=== PATIENT | female | born 1945 | race Caucasian/White ===

== ENCOUNTER → 2016-05-24 | Outpatient (CLI) | payer OTHER ==
[~2016-05-24] MED LIST: ALBUAER2 INH; CLN150; PRLSR20 PO; SERT-234; SYN75
[2016-05-24 13:05] LABS: ALT/SGPT 24 U/L (12-78); BLOOD UREA NITROGEN 11 mg/dl (7-18); CARBON DIOXIDE 27 mmol/L (21-32); CHLORIDE 108 mmol/L (98-107); CHOLESTEROL 317 mg/dl (0-200); CREATININE 0.68 mg/dl (0.60-1.20); GLUCOSE 97 mg/dl (70-99); POTASSIUM 3.8 mmol/L (3.5-5.1); SODIUM 141 mmol/L (136-145)
[2016-05-24 13:13] LABS: ALB/GLOB RATIO 1.1 (0.9-2); ALKALINE PHOSPHATASE 91 U/L (45-117); AST/SGOT 20 U/L (15-37); CHOLESTEROL/HDL RATIO 5.5; HDL CHOLESTEROL 58 mg/dl; LDL CHOLESTEROL CALCULATED 219 mg/dl; TRIGLYCERIDES 199 mg/dl (0-150); VERY LOW DENSITY LIPOPROT CALC 40 mg/dl
[2016-05-24 13:26] LABS: ESTIMATED AVERAGE GLUCOSE 120 mg/dl; HA1C FLAG Normal (Normal)
== END | disposition home or self-care (01) ==
LOC: C.LABBFT 09:05
PROVIDERS: ATTEND Internal Medicine
DX: E78.00 Pure hypercholesterolemia, unspecified (principal); R73.01 Impaired fasting glucose

== ENCOUNTER → 2016-10-12 | Outpatient (CLI) | payer OTHER ==
[~2016-10-12] MED LIST changes: +OPTIRAY 320 IV PRN
--- NOTE | 2016-10-12 14:16 | DIAGNOSTIC IMAGING REPORT ---
CT OF THE ABDOMEN AND PELVIS WITH CONTRAST CLINICAL HISTORY: Abdominal pain and diarrhea. COMPARISON STUDY: CT of the abdomen and pelvis May 25, 2011 and renal ultrasound June 08, 2011. TECHNIQUE: Following IV administration of 92 mL of Optiray-320, axial images of the abdomen and pelvis were obtained from the lung bases to the proximal femurs. Images were reviewed in the axial, sagittal, and coronal planes. IV contrast was administered without complication. A dose lowering technique was utilized adhering to the principles of ALARA. Oral contrast was administered. CT DOSE: 625.84 mGycm FINDINGS: Lung bases are clear. The liver, spleen, left kidney, adrenal glands and pancreas are normal. Note is made of a 2.9 cm cyst arising from the lower pole of the right kidney. There is no biliary or pancreatic ductal dilatation. No peripancreatic or pericholecystic infiltration is present. There is no evidence for a bowel obstruction. There is no evidence for acute appendicitis. There is moderate wall thickening of the cecum and mild wall thickening of the ascending colon with small pericolonic lymph nodes. There may be mild wall thickening of the remainder of the colon as well. There is minimal pericolonic infiltration with no free air or abscess. The uterus is surgically absent. No suspicious skeletal lesions are present. IMPRESSION: 1. Moderate wall thickening of the cecum with mild wall thickening of the ascending colon. Minimal pericolonic infiltration. No free air or abscess. The findings suggest an infectious etiology. A follow-up colonoscopy if not recently performed is recommended once patient's symptoms resolve to exclude the less likely possibility of a neoplasm. 2. 2.9 cm right renal cyst. 3. Small hiatal hernia. Electronically signed by: Lamont Espinoza M.D. 10/12/2016 2:15 PM Dictated Date/Time: 10/12/2016 2:02 PM
== END | disposition home or self-care (01) ==
LOC: C.CTS 11:19
PROVIDERS: ATTEND Physician Assistant Medical
DX: R10.9 Unspecified abdominal pain (principal)

== ENCOUNTER → 2016-10-19 | Outpatient (CLI) | payer OTHER ==
[~2016-10-19] MED LIST changes: -OPTIRAY 320 IV PRN
[2016-10-19 17:23] LABS: BASO % 0.8 %; BASO ABS # 0.06 K/uL (0-0.2); COMPLETE YES; EOS % 1.8 %; IG% 0.9 %; LYMPH % 15.1 %; LYMPH ABS # 1.17 K/uL (1.2-3.4); MEAN CELL VOLUME 90.3 fL (80-100); MEAN CORPUSCULAR HEMOGLOBIN 30.5 pg (25-34); MEAN CORPUSCULAR HGB CONC 33.8 g/dl (32-36); MEAN PLATELET VOLUME 10.9 fL (7.4-10.4); MONO % 10.9 %; NEUT % 70.5 %; PLATELET COUNT 273 K/uL (130-400); RED BLOOD COUNT 4.43 M/uL (4.2-5.4); WHITE BLOOD COUNT 7.73 K/uL (4.8-10.8)
[2016-10-19 17:40] LABS: ALT/SGPT 38 U/L (12-78); AST/SGOT 32 U/L (15-37); BLOOD UREA NITROGEN 8 mg/dl (7-18); BUN/CREATININE RATIO 11.5 (10-20); CALCIUM 9.2 mg/dl (8.5-10.1); CARBON DIOXIDE 28 mmol/L (21-32); CHLORIDE 107 mmol/L (98-107); CREATININE 0.71 mg/dl (0.60-1.20); GLUCOSE 105 mg/dl (70-99); POTASSIUM 3.6 mmol/L (3.5-5.1); SODIUM 140 mmol/L (136-145)
[2016-10-19 17:42] LABS: ALKALINE PHOSPHATASE 74 U/L (45-117)
[2016-10-19 17:44] LABS: URINE APPEARANCE CLEAR (CLEAR); URINE BILIRUBIN NEG (NEG); URINE COLOR YELLOW; URINE NITRITE NEG (NEG); URINE PH 6.5 (4.5-7.5); URINE SPECIFIC GRAVITY 1.011 (1.000-1.030); UROBILINOGEN NEG (NEG)
[2016-10-19 17:54] LABS: MANUAL MICROSCOPIC REQUIRED? NO; REVIEW REQ? NO
== END | disposition home or self-care (01) ==
LOC: C.LABBFT 11:57
PROVIDERS: ATTEND Physician Assistant Medical
DX: R39.9 Unspecified symptoms and signs involving the genitourinary system (principal); R20.2 Paresthesia of skin

== ENCOUNTER → 2016-11-26 | Outpatient (CLI) | payer OTHER ==
[2016-11-26 12:51] LABS: ESTIMATED AVERAGE GLUCOSE 123 mg/dl; HA1C FLAG Normal (Normal)
[2016-11-26 13:24] LABS: ALT/SGPT 24 U/L (12-78); BLOOD UREA NITROGEN 14 mg/dl (7-18); BUN/CREATININE RATIO 20.9 (10-20); CALCIUM 9.2 mg/dl (8.5-10.1); CARBON DIOXIDE 26 mmol/L (21-32); CHLORIDE 107 mmol/L (98-107); CHOLESTEROL 332 mg/dl (0-200); CREATININE 0.67 mg/dl (0.60-1.20); GLUCOSE 98 mg/dl (70-99); SODIUM 139 mmol/L (136-145); TRIGLYCERIDES 302 mg/dl (0-150); VERY LOW DENSITY LIPOPROT CALC 60 mg/dl
[2016-11-26 13:35] LABS: ALKALINE PHOSPHATASE 84 U/L (45-117); AST/SGOT 20 U/L (15-37); CHOLESTEROL/HDL RATIO 6.5; HDL CHOLESTEROL 51 mg/dl; LDL CHOLESTEROL CALCULATED 221 mg/dl; THYROID STIMULATING HORMONE 0.535 uIu/ml (0.300-4.500)
== END | disposition home or self-care (01) ==
LOC: C.LABBFT 08:04
PROVIDERS: ATTEND Internal Medicine
DX: E03.9 Hypothyroidism, unspecified (principal); E78.00 Pure hypercholesterolemia, unspecified; R73.01 Impaired fasting glucose

== ENCOUNTER → 2017-05-28 | Outpatient (CLI) | payer OTHER ==
[2017-05-28 13:00] LABS: HEMOGLOBIN A1C 5.9 % (4.5-5.6)
== END | disposition home or self-care (01) ==
LOC: C.LABBFT 10:04
PROVIDERS: ATTEND Internal Medicine
DX: R73.01 Impaired fasting glucose (principal); E78.00 Pure hypercholesterolemia, unspecified

== ENCOUNTER → 2017-09-16 | Outpatient (CLI) | payer OTHER | END | disposition home or self-care (01) | LOC: C.PAPS 13:49 | PROVIDERS: ATTEND Obstetrics & Gynecology | DX: Z01.419 Encounter for gynecological examination (general) (routine) without abnormal findings (principal) ==

== ENCOUNTER → 2017-09-29 | Outpatient (CLI) | payer OTHER | END | disposition home or self-care (01) | LOC: C.LAB 10:58 | PROVIDERS: ATTEND Physician Assistant Medical | DX: N39.0 Urinary tract infection, site not specified (principal) ==

== ENCOUNTER 2020-08-10 09:38 | Observation (INO) ==
--- NOTE | 2020-08-04 14:46 | Anesthesiology Consultation ---
Date of Service August 04, 2020 Assessment & Plan (1) Encounter for pre-operative examination: COVID screening: Per assessment on 08/03: Travel screen negative. no known COVID- 19 positive contacts or current COVID-19 related symptoms. Wears mask when required. Patient vaccinated. Surgeon arranging preop COVID testing (scheduled 08/08; VANDA Black). Awaiting results. Chart Review Chart Review: Acceptable Risk for Surgery and Patient seen in Pre Admission Testing History Surgery Operation Date: 08/10/20 10:55 Proposed Procedures p L4-L5 Left Microdiscectomy - Tramaine Young MD Height/Weight Height: 5 ft 6.5 in Weight: 74.843 kg Allergies Allergy/AdvReac Type Severity Reaction Status Date / Time Penicillins Allergy Mild Skin Verified 08/04/20 14:55 redness ciprofloxacin AdvReac Mild N/V Verified 08/04/20 14:55 Tpbwuln-[id number]-Pxb Reductase AdvReac Mild Muscle Pain Verified 07/26/20 14:57 Inhibitor Sulfa (Sulfonamide AdvReac Mild N/V Verified 08/04/20 14:55 Antibiotics) Medications Home Medications Medication Instructions Recorded Confirmed Last Taken omeprazole 20 mg PO UD PRN 07/06/19 08/03/20 07/07/19 06:00 sertraline 150 mg PO QPM 07/06/19 08/03/20 12/06/19 08:00 levothyroxine 100 mcg tablet 100 mcg PO QAM #90 tab 04/29/20 08/03/20 Unknown lorazepam 0.5 mg tablet 0.5 mg PO Q12H PRN #60 tab 04/29/20 08/03/20 Unknown zolpidem 5 mg tablet 5 mg PO HS PRN #30 tab 04/29/20 08/03/20 Unknown acetaminophen [Tylenol Extra 500 - 1,000 mg PO Q6H PRN 08/03/20 08/03/20 Unknown Strength] oxycodone 5 mg PO TID PRN 08/03/20 08/03/20 Unknown Past Medical History Medical History Acid reflux Anxiety Chronic back pain Chronic obstructive pulmonary disease Colitis Non specific colitis on 06/18/19 CT scan- treated/symptoms resolved Degenerative disc disease Depression Hearing deficit Hypercholesteremia Hypothyroidism Spinal stenosis Past Family History Family History Son Allergies Asthma Brother Liver cancer Hearing loss Cardiac disorder Family history of diabetes mellitus multiple brothers Family hx of colon cancer Sister Hearing loss Cardiac disorder Family history of diabetes mellitus multiple sisters Family hx colonic polyps Family/Other Neoplasm of gastrointestinal tract Breast cancer Hypertension Other No family history of adverse response to anesthesia Past Surgical History Surgical History History of bilateral tubal ligation History of colonoscopy History of dilatation and curettage x2 History of left breast biopsy benign History of left cataract surgery History of lumbar discectomy History of right cataract surgery History of tooth extraction History of total hysterectomy with bilateral salpingo-oophorectomy (BSO) Nausea and vomiting after administration of anesthetic agent Single episode with back surgery () Social History Smoking Status: Never smoker Do You Dip or Chew Tobacco: No Hx Alcohol Use: No Hx Substance Use: No substance use type: does not use Lab Results Anesthesia Preop Results Results Anesthesia Widget: WBC 7.04 K/uL (4.8-10.8) 08/01/20 Hgb 13.2 g/dL (12.0-16.0) 08/01/20 Hct 39.7 % (37-47) 08/01/20 Plt 289 K/uL (130-400) 08/01/20 Na 139 mmol/L (136-145) 08/01/20 K 3.6 mmol/L (3.5-5.1) 08/01/20 Cl 107 mmol/L (98-107) 08/01/20 CO2 25 mmol/L (21-32) 08/01/20 BUN 13 mg/dl (7-18) 08/01/20 Creat 0.75 mg/dl (0.6-1.2) 08/01/20 Glucose Level 97 mg/dl (70-99) 08/01/20 Blood Type O Positive 08/01/20 Antibody Screen NEGATIVE 08/01/20 Testing Electrocardiogram Date: 08/01/20 Findings: + NSR @ (64) Chest X-Ray Date: 08/01/20 Findings: + NAD Pulmonary Function Test Date: 01/26/20 Proportional reduction in FEV1 and FVC with preserved ratio but normal lung volumes. Nonspecific pattern and clinical correlation recommended. Air flows did improve postbronchodilator and may be consistent with obstructive lung disease in the right clinical context. DLCO normal.
[~2020-08-10 09:38] MED LIST changes: -ALBUAER2 INH; -CLN150; +LACTATED RINGER'S 1,000 ML IV SCH; +LR 15ML/HR IV SCH; -PRLSR20 PO; -SERT-234; -SYN75; +ceFAZolin 2000MG 2,000 MG/15 ML SYR IV SCH
[2020-08-10] MEDS ORDERED: MIDAZOLAM HCL 1 MG/ML 2ML VIAL ONE (09:59)
[2020-08-10] MEDS ORDERED: LIDOCAINE 2% 2 ML VIAL/AMP(20MG/ML) INFIL ONE (09:59)
[2020-08-10] MEDS ORDERED: PROPOFOL IV EMULSION 10 MG/ML 20 ML VIAL IV ONE (09:59)
[2020-08-10] MEDS ORDERED: ROCURONIUM BROMIDE 10 MG/ML 5 ML VIAL IV ONE (09:59)
[2020-08-10] MEDS ORDERED: fentaNYL citrate 100 MCG/2 ML VIAL ONE (10:00)
--- NOTE | 2020-08-10 10:56 | History & Physical Bridge Note ---
Date of Service August 10, 2020 History & Physical Bridge Note I have examined the patient, reviewed the History & Physical and in the interval since the performance of the History & Physical I have noted the following changes of clinical significance: no changes noted New changes compared to last appointment: nil Musculoskeletal: 5/5 motor strength bilateral L2-S1 except left L4 4/5 (appears pain-inhibited, not noted in clinic), L5 4/5. Neurologic: Sensation 2/2 to light touch bilateral L2-S1 except left L5 1/2 Patient marked for surgery. All new questions about procedure answered. Informed consent confirmed
[2020-08-10] MEDS ORDERED: ONDANSETRON INJ 2 MG/ML 2 ML VIAL IV PRN ×2 (10:59→16:26)
[2020-08-10] MEDS ORDERED: ATROPINE SULFATE 0.1 MG/ML 10ML SYR IV PRN (10:59)
[2020-08-10] MEDS ORDERED: PROMETHAZINE HCL 6.25 MG in SODIUM CHLORIDE 0.9% 50 ML IV PRN (10:59)
[2020-08-10] MEDS ORDERED: GELATIN SPONGE SZ 100 ONE (11:09)
[2020-08-10] MEDS ORDERED: VANCOMYCIN HCL 1000MG/20ML VIAL ONE (11:09)
[2020-08-10] MEDS ORDERED: THROMBIN FOR SOLN 20000 UNIT KIT ONE (11:09)
[2020-08-10] MEDS ORDERED: DEXAMETHASONE SOD INJ 4 MG/ML VIAL ONE (11:46)
[2020-08-10] MEDS ORDERED: ONDANSETRON INJ 2 MG/ML 2 ML VIAL ONE (11:46)
[2020-08-10] MEDS ORDERED: NEOSTIGMINE METHYLSULFATE 1 MG/ML 10ML VIAL ONE (11:48)
[2020-08-10] MEDS ORDERED: GLYCOPYRROLATE 0.2 MG/ML VIAL ONE (11:48)
[2020-08-10] MEDS ORDERED: FLOSEAL HEMOSTATIC MATRIX 10ML TOP ONE (12:16)
[2020-08-10] MEDS ORDERED: HYDROmorphone INJ 0.5 MG/0.5 ML SYR IV PRN ×2 (13:17→16:26)
[2020-08-10] MEDS ORDERED: ACETAMINOPHEN 500 MG TAB PO ONE (13:17)
[2020-08-10] MEDS ORDERED: HYDROCODONE/ACETAMOPHEN 5/325MG TAB PO PRN (13:17)
[2020-08-10] MEDS ORDERED: ONDANSETRON 4 MG OD TAB PO ONE (13:17)
--- NOTE | 2020-08-10 13:17 | Post Operative Brief Note ---
PG Immediate Post Op with CF Date of Surgery August 10, 2020 Pre & Post Diagnosis Operation Date: 08/10/20 10:55 Pre-Op Diagnosis: Lumbar Disc Herniation left paracentral L4-L5, radiculopathy Post-Op Diagnosis: Lumbar Disc Herniation left paracentral L4-L5, radiculopathy I identified the patient and participated in the time-out.: Yes Procedure Actual Procedures L4-L5 Left Microdiscectomy Surgeon Tramaine Young MD E D Tech Carl Lugo PA-C Estimated Blood Loss 25 Findings Consistent with Post-Op Diagnosis
[2020-08-10] MEDS ORDERED: oxyCODONE/ACETAMINOPHEN 5mg/325mg TAB PO PRN (13:20)
[2020-08-10] MEDS ORDERED: ePHEDrine sulfate 50 MG/ML AMP ONE (13:25)
[2020-08-10] MEDS ORDERED: PHENYLEPHRINE 100MCG/ML 5ML SYR ONE (13:25)
--- NOTE | 2020-08-10 13:31 | Communication Note ---
Date of Service: August 10, 2020 Post-op routine neurological assessment completed Patient awake, alert No new neurological deficits noted Musculoskeletal: 5/5 motor strength bilateral L2-S1 except left L4 4/5, L5 4/5. Neurologic: Sensation 2/2 to light touch bilateral L2-S1 except left L5 1/2
[2020-08-10] MEDS: fentaNYL citrate 100 MCG/2 ML VIAL IV PRN ×4 (13:36→13:51)
[2020-08-10] MEDS ORDERED: HYDROmorphone INJ 2 MG/ML SYR/VIAL IV PRN ×2 (14:04→14:35)
[2020-08-10] MEDS ORDERED: HYDROmorphone INJ 1 MG/ML SYRINGE ONE ×2 (14:18→14:44)
[2020-08-10] MEDS ORDERED: HYDROmorphone INJ 0.5 MG/0.5 ML SYR IV STA (14:23)
--- NOTE | 2020-08-10 14:37 | Anesthesiology Progress Note ---
Date of Service August 10, 2020 Anesthesia Post Procedure Vital Signs Vital Signs: Temp Pulse Pulse Resp BP BP Pulse Ox 08/10/20 14:30 87 18 159/68 H 97 08/10/20 14:20 90 18 138/77 98 08/10/20 14:10 90 18 149/70 H 98 08/10/20 14:00 81 18 150/78 H 97 08/10/20 13:50 87 16 143/75 H 95 08/10/20 13:40 84 16 140/65 98 08/10/20 13:30 88 14 151/68 H 100 08/10/20 13:21 36.6 C 83 18 134/62 100 08/10/20 10:23 36.6 C 69 18 136/72 97 Pain Intensity Back: Pain Intensity: 10 Transfer of Care Handoff Completed per policy Notes Mental Status: alert / awake / arousable Patient Amnestic to Procedure: Yes Nausea / Vomiting: adequately controlled Pain: adequately controlled Airway Patency, RR, SpO2: stable & adequate BP & HR: stable & adequate Hydration State: stable & adequate Anesthetic Complications: no major complications apparent
--- NOTE | 2020-08-10 14:42 | XRay Report ---
XR lumbar spine 1V HISTORY: 75 years-old Female L4-L5 LEFT MICRODISCECTOMY COMPARISON: MRI lumbar spine 07/14/2020, lumbar spine radiographs 05/31/2020 TECHNIQUE: 3 views of the lumbar spine FINDINGS: Mild multilevel spondylitic spurring with associated facet arthrosis. A linear metallic density needl e shaped device overlies the spinous process at L4 on the first image. Subsequent images demonstrate retractors posterior to the L4-L5 level with radiopaque surgical sponges. No acute fracture or malali gnment. IMPRESSION: Intraoperative images as above. ACT 112: Negative or not required by law. The above report was generated using voice recognition software. It may contain grammatical, syntax o r spelling errors. Electronically signed by: Mathew Figueredo M.D. 08/10/2020 2:41 PM
[2020-08-10] MEDS ORDERED: GABAPENTIN 300 MG CAP PO ONE (15:34)
[2020-08-10] MEDS ORDERED: CYCLOBENZAPRINE HCL 10 MG TAB PO ONE (15:34)
[2020-08-10] MEDS ORDERED: oxyCODONE/ACETAMINOPHEN 10-325 TAB PO PRN (15:36)
[2020-08-10] MEDS ORDERED: GABAPENTIN 300 MG CAP ONE (15:44)
[2020-08-10] MEDS ORDERED: diphenhydrAMINE Capsule 25 MG CAP PO PRN ×2 (16:26→16:58)
[2020-08-10] MEDS ORDERED: ACETAMINOPHEN 500 MG TAB PO PRN (16:26)
[2020-08-10] MEDS ORDERED: ZOLPIDEM TARTRATE 5 MG TAB PO PRN (16:26)
[2020-08-10] MEDS ORDERED: LORazepam 0.5 MG TAB PO PRN (16:26)
[2020-08-10] MEDS ORDERED: ONDANSETRON 4 MG OD TAB PO PRN (16:26)
[2020-08-10] MEDS ORDERED: ALUMINUM/MAGNESIUM SUSP 30 ML UDC PO PRN (16:26)
[2020-08-10] MEDS ORDERED: DO NOT ADMINISTER PNEUMOCOCCAL VACCINE PRN (16:26)
[2020-08-10] MEDS ORDERED: hydrOXYzine HCl 25 MG TAB PO PRN (16:26)
[2020-08-10] MEDS ORDERED: NALOXONE HCL 0.4 MG/1 ML VIAL/CARP IV PRN (16:26)
[2020-08-10] MEDS ORDERED: MAGNESIUM HYDROXIDE SUSP 30 ML UDC PO PRN (16:26)
[2020-08-10] MEDS ORDERED: DO NOT ADMINISTER FLU VACCINE PRN (16:26)
[2020-08-10] MEDS ORDERED: FAMOTIDINE 20 MG TAB PO PRN (16:26)
[2020-08-10] MEDS ORDERED: LORazepam 0.5 MG/1 ML VIAL IV PRN (16:26)
[2020-08-10] MEDS ORDERED: PROMETHAZINE HCL 12.5 MG in SODIUM CHLORIDE 0.9% 50 ML IV PRN (16:26)
[2020-08-10] MEDS ORDERED: SOD PHOSPHATE/SOD BIPHOSPHATE ENEMA 132 ML BTL PR PRN (16:26)
[2020-08-10] MEDS ORDERED: ACETAMINOPHEN 1,000 MG/100 ML VIAL IV PRN (16:26)
[2020-08-10] MEDS ORDERED: PANTOprazole 40 MG TAB PO PRN (17:02)
[2020-08-10] MEDS: NITROFURANTOIN MONOHYDRATE 100 MG CAP PO SCH (20:36)
[2020-08-10] MEDS: SERTRALINE HCL 50 MG TABLET PO SCH (20:36)
[2020-08-10] MEDS: CYCLOBENZAPRINE HCL 10 MG TAB PO SCH (20:37)
[2020-08-10] MEDS: GABAPENTIN 300 MG CAP PO SCH (20:37)
[2020-08-10] MEDS: DOCUSATE SODIUM/SENNA 50/8.6MG TAB PO SCH (20:37)
[2020-08-10] MEDS: ceFAZolin 2000MG 2,000 MG/15 ML SYR IV SCH (20:38)
[2020-08-10] MEDS: oxyCODONE/ACETAMINOPHEN 10-325 TAB PO PRN (20:53)
[2020-08-11] MEDS: ceFAZolin 2000MG 2,000 MG/15 ML SYR IV SCH (03:34)
[2020-08-11] MEDS: CYCLOBENZAPRINE HCL 10 MG TAB PO SCH ×3 (05:42→20:04)
[2020-08-11] MEDS: POLYETHYLENE (MIRALAX) 17 GM PACK PO SCH ×4 (05:42→23:24)
[2020-08-11] MEDS: LEVOTHYROXINE SODIUM 100 MCG TABLET PO SCH (05:42)
--- NOTE | 2020-08-11 08:08 | Orthopedic Progress Note ---
Date of Service August 11, 2020 Assessment & Plan (1) Status post spinal surgery: PT and mobility today d/c once mobilizing well and pain well-controlled Admission and Anticipated Discharge Date Admission Date: August 10, 2020 Subjective admitted post-op due to pain not well-controlled pain better controlled now, localized to lower back with no radiation to legs no new numbness/weakness slow to mobilize PT pending Physical Exam Physical Exam: vitals: see vital signs section; on RA, oxygen overnight dressing: clean, dry intact drain: N/A vascular: no calf tenderness or swelling bilaterally. no signs of DVT Musculoskeletal: 5/5 motor strength bilateral L2-S1 except left L4 4/5, L5 4/5. Neurologic: Sensation 2/2 to light touch bilateral L2-S1 (resolved left L5 numbness as per patient). Results & Data ([facility]) Vital Signs (Past 12 Hours) Vital Signs Temp Pulse Resp BP Pulse Ox 08/11/20 07:47 100 08/11/20 04:14 36.7 C 66 16 121/62 98 08/10/20 23:22 36.4 C L 78 16 117/57 L 96 PG Care Time/CCT Total # of Minutes Spent Total Time Spent with Patient: Total time spent is greater than 50% in coordination of care (as documented) at patient's floor/unit and/or counseling patient: Coding Level of Care Code None Diagnoses Status post spinal surgery Z98.890
--- NOTE | 2020-08-11 08:34 | Anesthesiology Progress Note ---
Date of Service August 11, 2020 Anesthesia Post Procedure Vital Signs Vital Signs: Temp Pulse Pulse Resp BP BP Pulse Ox 08/11/20 08:13 36.6 C 76 16 129/69 95 08/11/20 07:47 100 08/11/20 04:14 36.7 C 66 16 121/62 98 08/10/20 23:22 36.4 C L 78 16 117/57 L 96 08/10/20 19:28 36.4 C L 83 18 123/65 94 08/10/20 18:25 36.4 C L 86 16 126/66 96 08/10/20 17:25 36.4 C L 94 H 16 139/70 94 08/10/20 16:55 36.5 C 99 H 16 131/66 93 08/10/20 15:50 37 C 99 H 15 146/66 H 94 08/10/20 15:20 36.8 C 102 H 16 172/70 H 95 08/10/20 15:10 36.5 C 80 14 158/74 H 94 08/10/20 15:00 77 14 152/72 H 94 08/10/20 14:50 86 20 153/69 H 98 08/10/20 14:40 90 18 165/72 H 97 08/10/20 14:30 87 18 159/68 H 97 08/10/20 14:20 90 18 138/77 98 08/10/20 14:10 90 18 149/70 H 98 08/10/20 14:00 81 18 150/78 H 97 08/10/20 13:50 87 16 143/75 H 95 08/10/20 13:40 84 16 140/65 98 08/10/20 13:30 88 14 151/68 H 100 08/10/20 13:21 36.6 C 83 18 134/62 100 08/10/20 10:23 36.6 C 69 18 136/72 97 Pain Intensity Back: Pain Intensity: 5 Notes Mental Status: alert / awake / arousable and participated in evaluation Patient Amnestic to Procedure: Yes Nausea / Vomiting: adequately controlled Pain: adequately controlled Airway Patency, RR, SpO2: stable & adequate BP & HR: stable & adequate Hydration State: stable & adequate Anesthetic Complications: no major complications apparent
[2020-08-11] MEDS: GABAPENTIN 300 MG CAP PO SCH ×2 (08:40→20:05)
[2020-08-11] MEDS: NITROFURANTOIN MONOHYDRATE 100 MG CAP PO SCH ×2 (08:40→20:04)
[2020-08-11] MEDS: oxyCODONE/ACETAMINOPHEN 10-325 TAB PO PRN (08:45)
[2020-08-11] MEDS: oxyCODONE/ACETAMINOPHEN 5mg/325mg TAB PO PRN (18:55)
[2020-08-11] MEDS: SERTRALINE HCL 50 MG TABLET PO SCH (20:05)
[2020-08-11] MEDS: DOCUSATE SODIUM/SENNA 50/8.6MG TAB PO SCH (20:05)
[2020-08-12] MEDS: CYCLOBENZAPRINE HCL 10 MG TAB PO SCH (06:05)
[2020-08-12] MEDS: LEVOTHYROXINE SODIUM 100 MCG TABLET PO SCH (06:05)
[2020-08-12] MEDS: POLYETHYLENE (MIRALAX) 17 GM PACK PO SCH ×2 (06:05→13:58)
--- NOTE | 2020-08-12 08:15 | Orthopedic Progress Note ---
Date of Service August 12, 2020 Assessment & Plan (1) Status post spinal surgery: d/c home once cleared by PT this AM Admission and Anticipated Discharge Date Admission Date: August 10, 2020 Subjective mobilizing well pain better controlled now, localized to lower back with no radiation to legs no new numbness/weakness on O2 overnight. cleared 2-step testing by RT this AM Physical Exam Physical Exam: vitals: see vital signs section; on RA with cleared 2 step tyra ting by RT this AM, oxygen overnight dressing: clean, dry intact drain: N/A vascular: no calf tenderness or swelling bilaterally. no signs of DVT Musculoskeletal: 5/5 motor strength bilateral L2-S1 except left L4 4/5, L5 4/5. Neurologic: Sensation 2/2 to light touch bilateral L2-S1 (resolved left L5 numbness as per patient). Results & Data ([facility]) Vital Signs (Past 12 Hours) Vital Signs Temp Pulse Pulse Pulse Pulse Pulse Resp 08/12/20 07:54 104 H 101 H 96 H 08/12/20 07:35 36.5 C 87 16 08/12/20 06:04 37.1 C 89 16 08/11/20 22:15 36.7 C 81 16 Resp Resp Resp BP Pulse Ox Pulse Ox Pulse Ox 08/12/20 07:54 23 20 16 90 94 08/12/20 07:35 144/67 H 94 08/12/20 06:04 139/63 93 08/11/20 22:15 109/48 L 94 Pulse Ox 08/12/20 07:54 94 08/12/20 07:35 08/12/20 06:04 08/11/20 22:15 PG Care Time/CCT Total # of Minutes Spent Total Time Spent with Patient: Total time spent is greater than 50% in coordination of care (as documented) at patient's floor/unit and/or counseling patient: Coding Level of Care Code None Diagnoses Status post spinal surgery Z98.890
--- NOTE | 2020-08-12 08:19 | Discharge Summary ---
Date of Service August 12, 2020 Principal Diagnosis lumbar radiculopathy Discharge Data Allergies Allergy/AdvReac Type Severity Reaction Status Date / Time Penicillins Allergy Mild Skin Verified 08/10/20 10:16 redness ciprofloxacin AdvReac Mild N/V Verified 08/10/20 10:16 Vzxysgu-Rdz-Dij Reductase AdvReac Mild Muscle Pain Verified 08/10/20 10:16 Inhibitor Sulfa (Sulfonamide AdvReac Mild N/V Verified 08/10/20 10:16 Antibiotics) Procedures Performed Operation Date: 08/10/20 10:55 Actual Procedures p L4-L5 Left Microdiscectomy(Left) - Tramaine Young MD Hospital Course (1) Status post spinal surgery: Patient underwent the above mentioned procedure. There were no complications noted intra-op. Post-operatively, patient was sent to recovery with plans for discharge home. Patient however had history of narcotic use with her pain not well-controlled post-op and as such, was admitted for pain management. Pain was well-controlled throughout stay. Patient was able to ambulate, void, and tolerate PO intake at time of discharge. Patient needed some oxygen supplementation during her hospital stay. She cleared a 2-step oxygen assessment by RT prior to discharge and was on room air. Verbal discharge and follow-up instructions were given. Total Time Total Time Spent Total Time Spent (In Minutes): 25 Discharge Plan Discharge Items Patient Disposition: Home - Self-Care Reason For Visit: Lumbar Disc Herniation Discharge Diagnosis: Lumbar Disc Herniation left paracentral L4-L5, radiculopathy Activity: Per Instructions section Non-emergency contact: Surgeon Call non-emergency contact if: you have any medication questions Follow-up/Referrals: Michael Cao III, MD [Primary Care Provider] - Tramaine Young MD [Physician] - Diet: Regular Addtl Attending Provider Instructions: Posterior Lumbar Decompression, Microlaminectomy or Microdiscectomy Recovery What to expect You've had surgery: the first step toward the goals of decreasing back and leg pain, improving the ability to stand and walk, and stopping symptoms of nerve compression from getting worse. Now it's time to focus on healing. By following these tips, you will set yourself up for a successful outcome after surgery. Top things to know 1. A moderate or increased amount of back pain is expected after surgery. This will get better over the next four to six weeks. 2. Leg pain usually gets better after surgery, but may not be completely gone. Numbness, tingling and weakness take longer to get better after surgery. This is normal. Pain and weakness Back pain and muscle spasms are normal after surgery. These should get better over the next few weeks. Numbness, tingling and weakness that you had before surgery may take time to improve. Taking care of your incision Your incision may bleed and your dressing may get saturated with blood. This is normal. Change your dressing as often as needed to keep the incision clean and dry. If your incision has no bleeding or drainage, you can take your dressing off one to two days after surgery, but always keep the incision area clean and dry. If you have skin glue or tape on your incision, try to leave it in place for the first two weeks. Showering You can take a shower three days after surgery, once the incision is closed and doesn't have drainage. Let gentle soap and water run over the incision. Do not scrub it. Pat dry with a clean towel. Avoid taking tub baths, swimming and going in hot tubs until the incision is completely healed (tour to six weeks). Taking medication You may take anti-inflammatory medications (NSAIDs) to help relieve pain. NSAIDs include ibuprofen, Advil, Aleve, naproxen, Naprosyn, Mobic, meloxicam, Celebrex and diclofenac. If you have kidney or heart disease, stomach ulcers or you take blood thinners, check with your primary care provider before taking NSAIDs. If you need refills on your prescriptions, you may contact our office at least two days before you are out of pills so we have sufficient time to process your request. Refill requests on Saturday afternoons and holidays likely will be addressed on the next business day. Start weaning yourself from pain medications as soon as you are able. Remember, pain is a natural part of the healing process. The goal is not lo eliminate all pain but to keep you comfortable as you heal. Pain medications should be used only for a short period of time. Before taking Tylenol (acetaminophen), be aware that your pain medication probably has acetaminophen in it. Taking additional Tylenol or acetaminophen can put you over the daily recommended 3,000 milligrams, which can harm your liver. If you are taking a muscle relaxant, one of the side effects is drowsiness. If you feel too drowsy to safely get up and move around, take the muscle relaxant less often. Be active, but no lifting We want you to be active as soon as you get home from the hospital. Get up and walk often. If you go up and downstairs, make sure you hold onto the railing and have someone with you. Avoid excessive bending and twisting, and do not lift anything over 10 pounds until your surgeon says it's OK. And no driving You cannot drive until you are no longer taking narcotic pain medications or muscle relaxants and you can move well enough to be safe behind the wheel. Most patients can begin driving after the 6 week postoperative appointment. Your surgeon will let you know when you can start driving. Eating Ice and Popsicles can help relieve a sore throat. Eat soft foods that are easy to swallow. Take small bites and chew your food well. You can begin eating other foods gradually as you start to feel better. Constipation and bloating Constipation is a common side effect of taking narcotic pain medication and a good reason to begin tapering yourself off of pain medication as soon as you can. Drink lots of fluid, be active, and eat foods high in fiber to help relieve constipation. If constipation is bothering you, a stool softener or laxative may help. Try one of the following, and always follow the instructions: Milk of Magnesia, MiraLAX, Dulcolax, suppository Fleet enema, magnesium citrate. Follow up with your primary care provider If you have any health concerns, see your primary care provider within one week after surgery, especially if you have any of the following: Heart disease or have had a stroke Lung disease Diabetes Are over age 65 Take a blood thinner Take more than 10 prescription medications When is it an emergency? If you have any of the following symptoms call 911 or go to an emergency room right away: Trouble breathing Chest pain Significant new weakness since your surgery If you have any other concern, call our office at [phone] before going to an emergency room. In most cases we can help you or get you an appointment quickly. Pending Studies at Discharge: No Stand-Alone Forms: [facility], [facility] Management Medications and DC Order Prescriptions: New oxycodone-acetaminophen [Percocet] 5-325 mg Tablet 1 - 2 tab PO Q4H PRN (Reason: pain) Qty: 30 RF: 0 oxycodone-acetaminophen [Percocet] 5-325 mg tablet 1 tab PO Q4H Qty: 20 RF: 0 Continued nitrofurantoin monohyd/m-cryst [Macrobid] 100 mg capsule 100 mg PO BID 7 Days Qty: 14 RF: 0 lorazepam 0.5 mg tablet 0.5 mg PO Q12H PRN (Reason: stressful event or symptoms) Qty: 60 RF: 0 sertraline [Zoloft] 100 mg tablet 150 mg PO QPM RF: 0 omeprazole 20 mg tablet,delayed release (DR/EC) 20 mg PO UD PRN (Reason: Acid Reflux) RF: 0 diphenhydramine HCl [Sleep Aid (diphenhydramine)] 25 mg Tablet 25 mg PO HS PRN (Reason: Sleep) RF: 0 levothyroxine [Synthroid] 100 mcg tablet 100 mcg PO QAM RF: 0 zolpidem [Ambien] 5 mg tablet 5 mg PO HS PRN (Reason: insomnia) RF: 0 Discontinued acetaminophen [Tylenol Extra Strength] 500 mg Capsule 500 - 1,000 mg PO Q6H PRN (Reason: Pain) RF: 0 oxycodone 5 mg Tablet 5 mg PO TID PRN (Reason: Pain) RF: 0 Discharge Orders: Discharge Order (Routine); Ordered 08/12/20 Ordered By: Tramaine Young Admission Data Admit Date/Time: 08/10/20 16:26 Attending Provider: Tramaine Young Admit Provider: Tramaine Young Primary Care Provider: Michael Cao III Other Providers: [facility],Home Healthcare Coding Level of Care Code D/C Day Management <30 mins Diagnoses Status post spinal surgery Z98.890 Time Spent (min) 25
[2020-08-12] MEDS: GABAPENTIN 300 MG CAP PO SCH (08:54)
[2020-08-12] MEDS: NITROFURANTOIN MONOHYDRATE 100 MG CAP PO SCH (08:54)
[2020-08-12] MEDS: oxyCODONE/ACETAMINOPHEN 5mg/325mg TAB PO PRN (08:54)
[2020-08-12] MEDS ORDERED: bisacodyL 10 MG SUPP PR PRN (15:43)
--- NOTE | 2020-08-14 18:21 | Operative Report ---
[facility] Post Operative Report Pre & Post Diagnosis Operation Date: 08/10/20 10:55 Pre-Op Diagnosis: L4-5 left paracentral broad-based disc herniation with left lateral recess stenosis, effacement of traversing nerve root, L5 radiculopathy Post-Op Diagnosis: L4-5 left paracentral broad-based disc herniation with left lateral recess stenosis, effacement of traversing nerve root, L5 radiculopathy I identified the patient and participated in the time-out.: Yes Procedure 1. Left L4 hemilaminotomy, partial medial facetectomy and left L4-5 microdiscectomy Surgeon Tramaine Young MD [employer] Carl Lugo PA-C Estimated Blood Loss 25 Findings Consistent with Post-Op Diagnosis Specimens none Description of Procedure Indications: Patient is a 75 year old lady who presented to my clinic on July 21, 2020 with a 5 month history of left leg L5 radiculopathy with functional limitations despite maximization of non-op management with the exception of an injection. Imaging was consistent with her presentation with a left L4-5 paracentral disc herniation with effacement of the traversing L5 nerve root. A discussion was had with the patient with regards to remaining options for her with plans to follow- up with her subsequent to a pain management visit previously arranged for her for consideration for injection. In follow-up appointment on July 26, patient expressed a decision not to proceed with injections with desire to address the issue surgically. Informed consent was obtained and patient was booked for above procedure. On day of surgery, patient was identified in pre-op holding area. History and Physical was updated, surgical site was marked, and consent was confirmed. Risks, benefits and alternatives were discussed again and I answered all their questions. Implants: none Drains: none Description of procedure: Patient was brought to the operating room and underwent general anesthesia. SCDs were applied to bilateral legs to reduce risk of DVT. Patient was place prone on a Owen frame. Face, eyes, bony prominences, and peripheral nerves were well protected. The lumbar spine was prepped with alcohol and Chloraprep and draped in standard sterile fashion. A time-out was performed and documented. This included confirmation of administration of prophylactic antibiotics. A spinal needle was inserted and a lateral xray taken to localize the incision. A midline incision was made. The incision was carried through the subcutaneous tissue with cautery. The fascia was incised and subperiosteal dissection carried over the surgical side's lamina. The Gretchen retractor was placed. A #4 Wise elevator was positioned under the lamina and a annabel was place on the exposed spinous process. Lateral localization xray was taken and once appropriate level was confirmed, the level was marked. A high speed karthik was used to make unilateral L4 hemilaminotomy up to the insertion of the ligamentum flavum on the affected side. An up-angled curette was used to free the ligamentum flavum from its cranial and caudal attachments and it was removed with Kerrison rongeurs. Partial medial facetectomy were performed using a karthik and Kerrison rongeurs. This enabled visualization of the traversing nerve root. The traversing nerve root was protected and gently retracted medially allowing visualization of the disc herniation. Direct pressure was noted on the traversing nerve root by the disc herniation. An annulotomy was made and the herniation was removed with a pituitary rongeur. A blunt nerve hook was used to palpate medially, superiorly and inferiorly to ensure there are no remaining protruding disc. At the conclusion of the discectomy, the traversing nerve root appeared to be fully decompressed. A ball-tipped probe was able to be freely passed into the foramen and through the lateral recess. The wound was then copiously irrigated. No spinal fluid leaks were identified. The wound was assessed for any sources of bleed and hemostasis was achieved prior to closure. To reduce risk of post-op infection, 1g of vancomycin powder was applied to the deep and superficial layers prior to closure. The wound was closed in layers with #1 Vicryl for fascia, 2-0 Vicryl sutures for subcutaneous superficial closure and 3-0 Stratafix suture for subcuticular superficial closure. Steri-strips and sterile dressings were applied. The patient was then flipped supine, awakened and taken to the recovery room in stable condition. There were no intra-operative complications noted. Sponge and needle counts were correct x2 at the conclusion of the case. I attest to the content of the Intraoperative Record and any orders documented therein. Any exceptions are noted below.
== END 2020-08-12 13:59 | disposition home health service (06) ==
LOC: 3E 09:38 → ASU 09:38

== ENCOUNTER 2022-04-29 11:28 | Inpatient (IN) ==
[2022-04-29] MEDS ORDERED: MoRPHine SULFATE 2 MG/ML CARP IV STA ×2 (11:48→15:21)
[2022-04-29] MEDS ORDERED: SODIUM CHLORIDE 0.9% 1000ML 500 ML IV ONE (11:48)
[2022-04-29] MEDS ORDERED: ONDANSETRON INJ 2 MG/ML 2 ML VIAL IV STA (11:48)
--- NOTE | 2022-04-29 11:57 | Emergency Department Note ---
ED Provider Note History of Present Illness Chief Complaint: Diarrhea Stated Complaint: DIARRHEA, ABDOMINAL PAIN Time Seen by Provider: 04/29/22 11:35 pleasant 77-year-old female who presents to the emergency department with her cpvysawz-ic-irn for evaluation of lower abdominal pain, nausea, diarrhea and weakness. The patient reports that she awoke around 5 AM this morning with bloody diarrhea, and significant left lower quadrant abdominal cramping. The pain does not radiate into the back, upper abdomen or chest. Is that she has had weakness since having a COVID-19 infection back in March. The patient does report a prior history of problems with her gut. the patient reports that she did have a colonoscopy a few years ago with Dr. Paz. She denies eating any unusual foods. She denies any known sick contacts. The patient currently rates her discomfort an 8 out of 10. Home Medications Medication Instructions Recorded Confirmed Type diphenhydramine HCl 25 mg tablet 25 mg PO HS PRN Sleep 08/10/20 04/29/22 History (Sleep Aid (diphenhydramine)) omeprazole 20 mg tablet,delayed 20 mg PO UD PRN Acid Reflux #30 11/03/20 04/29/22 Rx release tabs zolpidem 5 mg tablet (Ambien) 5 mg PO HS PRN insomnia #30 tabs 05/19/21 04/29/22 Rx levothyroxine 100 mcg tablet 100 mcg PO QAM #90 tabs 08/09/21 04/29/22 Rx (Synthroid) acetaminophen 500 mg tablet 500 mg PO Q6H PRN Pain 09/21/21 04/29/22 History (Tylenol Extra Strength) bismuth subsalicylate 262 mg/15 mL 0 mg PO QID PRN gi-upset 09/21/21 04/29/22 History oral suspension (Pepto-Bismol) triamcinolone acetonide 0.1 % 1 applic topical BID PRN flare ups 09/21/21 04/29/22 History topical cream clotrimazole 10 mg taye 10 mg mucous membrane 5XD 7 days 09/25/21 04/29/22 Rx #35 tabs sertraline 100 mg tablet (Zoloft) 150 mg PO DAILY #135 tabs 10/10/21 04/29/22 Rx lorazepam 0.5 mg tablet 0.5 mg PO Q12H PRN stressful event 04/17/22 04/29/22 Rx or symptoms #60 tabs cholecalciferol (vitamin D3) 10 0 mcg PO DAILY 04/29/22 04/29/22 History mcg (400 unit) capsule (Vitamin D3) multivitamin 1 tab PO DAILY 04/29/22 04/29/22 History Allergies Allergy/AdvReac Type Severity Reaction Status Date / Time Penicillins Allergy Mild Skin Verified 04/29/22 13:03 redness ciprofloxacin AdvReac Mild N/V Verified 04/29/22 13:03 Qzdarrc-[id number]-KeX Reductase AdvReac Mild Muscle Pain Verified 04/29/22 13:03 Inhibitor [Irkreeu-Ryb-Xdu Reductase Inhibitor] Sulfa (Sulfonamide AdvReac Mild N/V Verified 04/29/22 13:03 Antibiotics) clonazepam AdvReac Verified 04/29/22 13:03 Past Med/Surg History Medical History (Updated 04/29/22 @ 17:21 by Rod Coburn) Acid reflux Anxiety Chronic back pain Chronic obstructive pulmonary disease Colitis Non specific colitis on 06/18/19 CT scan- treated/symptoms resolved Degenerative disc disease Depression Hearing deficit Hypercholesteremia Hypothyroidism Spinal stenosis Surgical History History of back surgery 08/10/20 History of bilateral tubal ligation History of colonoscopy History of dilatation and curettage x2 History of left breast biopsy benign History of left cataract surgery History of lumbar discectomy History of right cataract surgery History of tooth extraction History of total hysterectomy with bilateral salpingo-oophorectomy (BSO) Nausea and vomiting after administration of anesthetic agent Single episode with back surgery () Family History Son Allergies Asthma Brother Liver cancer Hearing loss Cardiac disorder Family history of diabetes mellitus multiple brothers Family hx of colon cancer Sister Hearing loss Cardiac disorder Family history of diabetes mellitus multiple sisters Family hx colonic polyps Family/Other Neoplasm of gastrointestinal tract Breast cancer Hypertension Other No family history of adverse response to anesthesia Social History Smoking Status: Never smoker Second Hand Exposure: No; Hx Alcohol Use: No Hx Substance Use: No Preferred Language: Chinese Communication Ability: Effective Visual Impairment: No Limitations Hearing Ability: Hard of Hearing 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: No Beliefs That Will Affect Care: None marital status: Current Living Situation: Spouse current occupational status: retired current occupation: used to work in retail Feels Safe at Home: Yes Childhood Exposure to Second-Hand Smoke: Yes Dental Care, Regularly: Yes Physical Activity Frequency: Does not Exercise Seatbelt Use: always Sunscreen Use: No Assistive Devices: Walker Physical Exam Vital Signs Vital Signs - 24 hr 04/29/22 11:29 04/29/22 12:11 Temperature 36.6 C Temperature Source Temporal Artery Scan Pulse Rate 83 Pulse Rate [Left Finger] 64 Respiratory Rate 16 Blood Pressure 161/78 H Blood Pressure [Left Arm] 147/70 H Blood Pressure Mean 105 Blood Pressure Mean [Left Arm] 95 Pulse Oximetry 98 99 Sepsis Recent Fever Within 48 Hours No Sepsis New/Unexplained Change in Mental Status N/A Sepsis Action Taken by Nursing No Action Required CONSTITUTIONAL: Healthy and well nourished. Patient appears in mild to moderate discomfort. HEENT: No scleral icterus or conjunctival injection/pallor. Mucous membranes are dry. RESPIRATORY: Clear to auscultation bilaterally with no wheezing, crackles, rhonchi or stridor. CARDIOVASCULAR: Regular rate and rhythm with no murmurs, rubs or gallops. GASTROINTESTINAL: Bowel sounds present in all quadrants. Patient has notable lower and left lower quadrant abdominal tenderness to palpation without rigidity, guarding or rebound. Negative McBurney's point tenderness. Negative CVA tenderness. MUSCULOSKELETAL: Full range of motion of all joints without discomfort. INTEGUMENTARY: No rash or other significant dermatologic conditions noted. HEMATOLOGIC: No ecchymosis or petechiae. PSYCHIATRIC: Positive affect. NEUROLOGIC: No focal neurologic deficits noted. Course Course Patient history and physical exam were performed. Nurses notes were reviewed. Vital signs were reviewed, showing an elevated blood pressure. The patient is not febrile or tachycardic. IV access was established, and labs were drawn. The patient was hydrated with a normal saline 500 cc bolus, and administered IV morphine and Zofran for pain and nausea. Review of labsShows a white count of 19.38 with a left shift and no bandemia. CMP shows an elevated glucose, otherwise no other acute abnormalities. TSH was also normal. Prior to CT imaging, I did reassess the patient, who reported a decrease of her pain to a 4 out of 10, and denied any nausea. CT with IV contrast of the abdomen and pelvis shows evidence for the colitis of the left colon, without evidence for diverticulitis. Radiologist also makes mention of nonocclusive thrombus within the right and left intrahepatic portal veins, as well as a thrombus within the inferior mesenteric vein. It is noted that the patient did have a CT with IV contrast of the abdomen and pelvis back in September of last year that did not show these findings. Findings were discussed with Dr. Stuart, ED attending physician, who recommended hospitalist consultation, possible heparin administration. I did go back and discuss findings with the patient. The patient had just come out of the bathroom, And has not been able to provide a stool sample. She did notice some bright red blood on her toilet paper. Laboratory and CT findings were discussed with the patient and family. I then discussed the case further with Dr. Aguilar, [facility] hospitalist, who requested that I also discussed the case further with general surgery on-call. He also asked that I perform an ECG to rule out A-fib, and pending general surgery conversation, they would start heparin orders. An ECG was performed, showing a normal sinus rhythm. The case was then further discussed with Dr. Spivey, general surgeon on-call, who indicated that this is a nonsurgical management at this point, and was okay with starting heparin. He will evaluate the patient. This information was relayed back to Dr. Aguilar. Please see hospitalist and surgical dictations for further treatment and final disposition. Administered Medications Cefepime HCl 2,000 mg/ Syringe 20 mls @ 5 mls/min IV Q8H [facility]; Protocol Stop: 05/09/22 16:59 Last Admin: 04/29/22 17:37 Dose: 5 mls/min Documented By: EDIN Metronidazole (Flagyl) 500 mg in 100 mls @ 100 mls/hr IV Q8H JASMIN Stop: 05/09/22 16:59 Last Infusion: 04/29/22 19:00 Dose: 0 mls/hr Documented By: Admin: 04/29/22 17:53 Dose: 100 mls/hr Documented By: EDIN Heparin Sodium/Dextrose (Heparin Sodium/Dextrose) 25,000 units in 500 mls @ 24 mls/hr IV .[id number] [facility]; Protocol Stop: 05/29/22 16:59 Last Admin: 04/29/22 17:35 Dose: 1,200 units/hr, 24 mls/hr Documented By: EDIN Co-signed By: NH Discontinued Medications Sodium Chloride (Nss 1000ml) 500 mls @ 999 mls/hr IV .Q31M ONE Stop: 04/29/22 12:18 Last Admin: 04/29/22 12:16 Dose: 999 mls/hr Documented By: CELIA Lactated Ringer's (Lr) 1,000 mls @ 999 mls/hr IV .Q1H1M ONE Stop: 04/29/22 17:42 Last Infusion: 04/29/22 19:01 Dose: 0 mls/hr Documented By: Admin: 04/29/22 17:37 Dose: 999 mls/hr Documented By: EDIN Ioversol (Optiray 350 100ml) 85 ml IV ONCE ONE Stop: 04/29/22 13:57 Last Admin: 04/29/22 13:56 Dose: 85 ml Documented By: DENISE Morphine Sulfate (Morphine Sulfate 2 Mg/Ml Carp) 2 mg IV NOW STA Stop: 04/29/22 11:49 Last Admin: 04/29/22 12:15 Dose: 2 mg Documented By: CELIA Morphine Sulfate (Morphine Sulfate 2 Mg/Ml Carp) 2 mg IV NOW STA Stop: 04/29/22 15:22 Last Admin: 04/29/22 15:27 Dose: 2 mg Documented By: EDIN Ondansetron HCl (Ondansetron Inj 2 Mg/Ml 2 Ml Vial) 4 mg IV NOW STA Stop: 04/29/22 11:49 Last Admin: 04/29/22 12:15 Dose: 4 mg Documented By: CELIA Medical Decision Making Medical Records Attestation: I reviewed the patient's medical records. Home Medications was personally reviewed by me Laboratory Data Attestation: I reviewed the patient's lab results. 04/29/22 12:06 04/29/22 12:06 Lab Results 04/29/22 04/29/22 04/29/22 Range/Units 12:06 12:06 12:06 WBC 19.38 H (4.8-10.8) K/ul RBC 4.50 (4.20-5.40) M/uL Hgb 14.0 (12.0-16.0) g/dl Hct 40.5 (37.0-47.0) % MCV 90.0 (80.0-100.0) fL MCH 31.1 (25.0-34.0) pg MCHC 34.6 (32.0-36.0) g/dL RDW Std Deviation 40.8 (36.4-46.3) fL RDW Coeff of Angela 12.4 (11.5-14.5) % Plt Count 221 (130-400) K/uL MPV 10.4 (9.4-12.4) fL Immature Gran % (Auto) 0.6 % Neut % (Auto) 89.1 % Lymph % (Auto) 4.3 % Craven % (Auto) 5.7 % Eos % (Auto) 0.0 % Baso % (Auto) 0.3 % Neut # (Auto) 17.26 H (1.40-6.50) K/uL Lymph # (Auto) 0.84 L (1.2-3.4) K/uL Craven # (Auto) 1.11 H (0.11-0.59) K/uL Eos # (Auto) 0.00 (0-0.50) K/uL Baso # (Auto) 0.05 (0-0.2) K/uL Immature Gran # (Auto) 0.12 (0.01-0.20) K/uL PT (9.0-12.0) Seconds INR (0.9-1.1) APTT (21.0-31.0) Seconds PTT Ratio Sodium 138 (136-145) mmol/L Potassium 3.6 (3.5-5.1) mmol/L Chloride 103 (98-107) mmol/L Carbon Dioxide 26 (21-32) mmol/L Anion Gap 9 (3-11) BUN 15 (6-23) mg/dl Creatinine 0.74 (0.6-1.2) mg/dl Est Cr Clr Drug Dosing 68.3 ml/min Est GFR ( Amer) 91.9 ml/min Est GFR (Non-Af Amer) 79.3 ml/min BUN/Creatinine Ratio 20.3 H (10-20) Glucose 121 H (70-99(Fasting)) mg/dl Lactate (0.4-2.0) mmol/L Calcium 9.8 (8.5-10.1) mg/dl Total Bilirubin 0.5 (0.2-1.0) mg/dl AST 22 (13-39) U/L ALT 17 (7-52) U/L Alkaline Phosphatase 78 (34-104) U/L Total Protein 7.8 (6.0-8.3) gm/dl Albumin 4.6 (3.4-5.0) gm/dl Globulin 3.2 (2.5-4.0) gm/dl Albumin/Globulin Ratio 1.4 (0.9-2) Lipase 29 (11-82) U/L TSH 1.885 (0.300-4.500) uIu/ml Urine Color Urine Appearance (Clear) Urine pH (4.5-7.5) Ur Specific [place] (1.000-1.030) Urine Protein (Negative) Urine Glucose (UA) (Negative) Urine Ketones (Negative) Urine Blood (Negative) Urine Nitrite (Negative) Urine Bilirubin (Negative) Urine Urobilinogen (Negative) Ur Leukocyte Esterase (Negative) Urine WBC (Auto) (0-5) /hpf Urine RBC (Auto) (0-4) /hpf U Hyaline Cast (Auto) (0-5) /lpf U Epithel Cells (Auto) (0-5) /lpf Urine Bacteria (Auto) (Negative) SARS-CoV-2, RNA, NAAT (NEGATIVE) 04/29/22 04/29/22 04/29/22 Range/Units 12:06 12:06 15:22 WBC (4.8-10.8) K/ul RBC (4.20-5.40) M/uL Hgb (12.0-16.0) g/dl Hct (37.0-47.0) % MCV (80.0-100.0) fL MCH (25.0-34.0) pg MCHC (32.0-36.0) g/dL RDW Std Deviation (36.4-46.3) fL RDW Coeff of Angela (11.5-14.5) % Plt Count (130-400) K/uL MPV (9.4-12.4) fL Immature Gran % (Auto) % Neut % (Auto) % Lymph % (Auto) % Craven % (Auto) % Eos % (Auto) % Baso % (Auto) % Neut # (Auto) (1.40-6.50) K/uL Lymph # (Auto) (1.2-3.4) K/uL Craven # (Auto) (0.11-0.59) K/uL Eos # (Auto) (0-0.50) K/uL Baso # (Auto) (0-0.2) K/uL Immature Gran # (Auto) (0.01-0.20) K/uL PT 10.7 (9.0-12.0) Seconds INR 1.0 (0.9-1.1) APTT 24.6 (21.0-31.0) Seconds PTT Ratio 0.9 Sodium (136-145) mmol/L Potassium (3.5-5.1) mmol/L Chloride (98-107) mmol/L Carbon Dioxide (21-32) mmol/L Anion Gap (3-11) BUN (6-23) mg/dl Creatinine (0.6-1.2) mg/dl Est Cr Clr Drug Dosing ml/min Est GFR ( Amer) ml/min Est GFR (Non-Af Amer) ml/min BUN/Creatinine Ratio (10-20) Glucose (70-99(Fasting)) mg/dl Lactate 1.1 (0.4-2.0) mmol/L Calcium (8.5-10.1) mg/dl Total Bilirubin (0.2-1.0) mg/dl AST (13-39) U/L ALT (7-52) U/L Alkaline Phosphatase (34-104) U/L Total Protein (6.0-8.3) gm/dl Albumin (3.4-5.0) gm/dl Globulin (2.5-4.0) gm/dl Albumin/Globulin Ratio (0.9-2) Lipase (11-82) U/L TSH (0.300-4.500) uIu/ml Urine Color Yellow Urine Appearance Clear (Clear) Urine pH 7.5 (4.5-7.5) Ur Specific [place] 1.012 (1.000-1.030) Urine Protein Negative (Negative) Urine Glucose (UA) Negative (Negative) Urine Ketones Negative (Negative) Urine Blood Negative (Negative) Urine Nitrite Negative (Negative) Urine Bilirubin Negative (Negative) Urine Urobilinogen Negative (Negative) Ur Leukocyte Esterase Trace H (Negative) Urine WBC (Auto) 1-5 (0-5) /hpf Urine RBC (Auto) 0-4 (0-4) /hpf U Hyaline Cast (Auto) 0 (0-5) /lpf U Epithel Cells (Auto) 10-20 H (0-5) /lpf Urine Bacteria (Auto) Negative (Negative) SARS-CoV-2, RNA, NAAT (NEGATIVE) 04/29/22 Range/Units 18:25 WBC (4.8-10.8) K/ul RBC (4.20-5.40) M/uL Hgb (12.0-16.0) g/dl Hct (37.0-47.0) % MCV (80.0-100.0) fL MCH (25.0-34.0) pg MCHC (32.0-36.0) g/dL RDW Std Deviation (36.4-46.3) fL RDW Coeff of Angela (11.5-14.5) % Plt Count (130-400) K/uL MPV (9.4-12.4) fL Immature Gran % (Auto) % Neut % (Auto) % Lymph % (Auto) % Craven % (Auto) % Eos % (Auto) % Baso % (Auto) % Neut # (Auto) (1.40-6.50) K/uL Lymph # (Auto) (1.2-3.4) K/uL Craven # (Auto) (0.11-0.59) K/uL Eos # (Auto) (0-0.50) K/uL Baso # (Auto) (0-0.2) K/uL Immature Gran # (Auto) (0.01-0.20) K/uL PT (9.0-12.0) Seconds INR (0.9-1.1) APTT (21.0-31.0) Seconds PTT Ratio Sodium (136-145) mmol/L Potassium (3.5-5.1) mmol/L Chloride (98-107) mmol/L Carbon Dioxide (21-32) mmol/L Anion Gap (3-11) BUN (6-23) mg/dl Creatinine (0.6-1.2) mg/dl Est Cr Clr Drug Dosing ml/min Est GFR ( Amer) ml/min Est GFR (Non-Af Amer) ml/min BUN/Creatinine Ratio (10-20) Glucose (70-99(Fasting)) mg/dl Lactate (0.4-2.0) mmol/L Calcium (8.5-10.1) mg/dl Total Bilirubin (0.2-1.0) mg/dl AST (13-39) U/L ALT (7-52) U/L Alkaline Phosphatase (34-104) U/L Total Protein (6.0-8.3) gm/dl Albumin (3.4-5.0) gm/dl Globulin (2.5-4.0) gm/dl Albumin/Globulin Ratio (0.9-2) Lipase (11-82) U/L TSH (0.300-4.500) uIu/ml Urine Color Urine Appearance (Clear) Urine pH (4.5-7.5) Ur Specific [place] (1.000-1.030) Urine Protein (Negative) Urine Glucose (UA) (Negative) Urine Ketones (Negative) Urine Blood (Negative) Urine Nitrite (Negative) Urine Bilirubin (Negative) Urine Urobilinogen (Negative) Ur Leukocyte Esterase (Negative) Urine WBC (Auto) (0-5) /hpf Urine RBC (Auto) (0-4) /hpf U Hyaline Cast (Auto) (0-5) /lpf U Epithel Cells (Auto) (0-5) /lpf Urine Bacteria (Auto) (Negative) SARS-CoV-2, RNA, NAAT NEGATIVE (NEGATIVE) Imaging Data Attestation: I personally reviewed and interpreted this imaging study as follows: My Impression: My interpretation of a CT with IV contrast of the abdomen and pelvis surgery generalized left colitis without evidence for diverticulitis, abdominal free air or. Radiologist does also make mention of nonocclusive right and left intrahepatic portal vein thrombi, as well as a mesenteric venous thrombus. Radiologist report was also reviewed with concurrence, and is summarized below. Radiologist's Impression: Abdomen/Pelvis CT 04/29/22 11:48 CT SCAN OF THE ABDOMEN AND PELVIS WITH IV CONTRAST CLINICAL HISTORY: Generalized abdominal pain. Hematochezia. COMPARISON STUDY: Abdominal CT dated 09/21/2021. TECHNIQUE: Following the IV administration of 85 cc of Optiray 350, CT scan of the abdomen and pelvis is performed from the lung bases to the proximal femora. Images are reviewed in the axial, sagittal, and coronal planes. IV contrast was administered without complication. A dose lowering technique was utilized adhering to the principles of ALARA. CT DOSE: 374.77 mGy.cm FINDINGS: Lung bases: The heart is normal in size and without pericardial effusion. The lung bases are clear. There is a [id number] hiatal hernia. Liver: The contrast-enhanced liver is normal in size, contour, and attenuation. There is no intrahepatic biliary ductal dilatation. There is nonocclusive thrombus within the intrahepatic right and left lobe portal veins. This is best seen on axial images #93 and #94. The main portal vein is patent. There is thrombus within the inferior mesenteric vein seen on image #141. Hepatic veins are clear. Gallbladder: Unremarkable. Spleen: Normal in size and attenuation. Pancreas: Unremarkable. Adrenal glands: Unremarkable. Kidneys: The contrast enhanced kidneys are normal in size and without hydron ephrosis. The kidneys enhance symmetrically. A 3.5 cm cyst is seen in the right lower pole. Abdominal vasculature: The abdominal aorta is normal in course and caliber noting mild atherosclerotic calcification. Bowel: There is mild colonic diverticulosis without CT evidence of acute diverticulitis. There is a long segment of thick-walled and edematous colon. This extends from the distal transverse colon to the sigmoid with surrounding inflammation, and this is consistent with a nonspecific colitis. No bowel obstruction is seen. The appendix is well-visualized and normal. Peritoneum: There is no intraperitoneal free air or abdominal ascites. There is a small fat-containing umbilical hernia. Lymphadenopathy: None. Pelvic viscera: The bladder is decompressed and not well assessed. The uterus is surgically absent. No adnexal lesion is seen. Skeletal structures: The skeletal structures are osteopenic. No lytic or blastic lesions are seen. IMPRESSION: 1. There is nonocclusive thrombus within the right and left intrahepatic portal veins. There is also thrombus within the inferior mesenteric vein. 2. There is a nonspecific colitis of the left colon. Although this could be on an infectious or inflammatory basis, this could also be related to venous ischemia given the findings of mesenteric venous thrombus. Clinical correlation will be required. 3. Colonic diverticulosis without CT evidence of acute diverticulitis. 4. Additional findings as above. ACT 112: Negative or not required by law. Electronically signed by: Solitario Marrero M.D. 04/29/2022 2:24 PM ECG Data Attestation: I personally reviewed and interpreted this ECG as follows: Indication: + other ( abdominal venous thrombosis) Rate (beats per minute): 81 Rhythm: + normal sinus ECG Intervals/blocks: + Normal QRS, + Normal QT and + Normal MD ECG [place]: + Normal ECG ST segments: + Normal ST segments Comparison ECG Date: from ( 04/29/2022) Change: no significant change MDM Narrative See ED course for further details of today's visit. The patient presents with complaint of lower and left lower quadrant abdominal pain, nausea, vomiting and bloody diarrhea. CT imaging today Shows a left-sided colitis, and with presenting symptoms, I highly suspect a viral gastroenteritis. Unfortunately, CT imaging also shows an inferior mesenteric venous thrombus, as well as additional nonocclusive thrombi within the right and left intrahepatic portal veins. This certainly warrants evaluation for possible ischemic colitis. Patient does have a notable leukocytosis. Her lactate is normal. Additional blood cultures were ordered. General surgery consultation does not feel that surgical intervention is warranted, and has agreed with administration of heparin at this time. General surgery will also follow-up with the patient. Review of labs are not suggestive of pancreatitis, cholecystitis or hepatitis. Urinalysis is not suggestive of infection. ECG does not show evidence for atrial fibrillation. Impression Inferior mesenteric vein thrombosis, Colitis, Bloody diarrhea, Nausea and vomiting Discharge Plan Visit Data Chief Complaint: Diarrhea Stated Complaint: DIARRHEA, ABDOMINAL PAIN ED Provider: Romain Stuart ED Midlevel Provider: Rod Coburn Discharge Problem: Inferior mesenteric vein thrombosis, Colitis, Bloody diarrhea, Nausea and vomiting Forms Stand Alone Forms: My [facility] Xtium Prescriptions Prescriptions: No Action sertraline [Zoloft] 100 mg tablet 150 mg PO DAILY Qty: 135 3RF lorazepam 0.5 mg tablet 0.5 mg PO Q12H PRN (Reason: stressful event or symptoms) Qty: 60 0RF omeprazole 20 mg tablet,delayed release (DR/EC) 20 mg PO UD PRN (Reason: Acid Reflux) Qty: 30 6RF zolpidem [Ambien] 5 mg tablet 5 mg PO HS PRN (Reason: insomnia) Qty: 30 0RF levothyroxine [Synthroid] 100 mcg tablet 100 mcg PO QAM Qty: 90 3RF clotrimazole 10 mg taye 10 mg mucous membrane 5XD 7 Days Qty: 35 0RF triamcinolone acetonide 0.1 % cream 1 applic topical BID PRN (Reason: flare ups) diphenhydramine HCl [Sleep Aid (diphenhydramine)] 25 mg Tablet 25 mg PO HS PRN (Reason: Sleep) acetaminophen [Tylenol Extra Strength] 500 mg Tablet 500 mg PO Q6H PRN (Reason: Pain) bismuth subsalicylate [Pepto-Bismol] 262 mg/15 mL Suspension 0 mg PO QID PRN (Reason: gi-upset) multivitamin Tablet 1 tab PO DAILY cholecalciferol (vitamin D3) [Vitamin D3] 10 mcg (400 unit) Capsule 0 mcg PO DAILY Referrals Referrals: Dyllan Parker CRNP [Nurse Practitioner] - Nausea and vomiting Qualifiers: Vomiting type: unspecified Qualified Code(s): R11.2 - Nausea with vomiting, unspecified
[2022-04-29 12:28] LABS: Basophils # (auto) 0.05 K/uL (0-0.2); Basophils % (auto) 0.3 %; Hematocrit (blood only) 40.5 % (37.0-47.0); Immature Granulocytes # (auto) 0.12 K/uL (0.01-0.20); Immature Granulocytes % (auto) 0.6 %; Lymphocytes # (auto) 0.84 K/uL (1.2-3.4); Lymphocytes % (auto) 4.3 %; Mean Corpuscular Hemoglobin 31.1 pg (25.0-34.0); Mean Corpuscular Hgb Conc 34.6 g/dL (32.0-36.0); Mean Platelet Volume 10.4 fL (9.4-12.4); Monocytes # (auto) 1.11 K/uL (0.11-0.59); Monocytes % (auto) 5.7 %; Neutrophils # (auto) 17.26 K/uL (1.40-6.50); Neutrophils % (auto) 89.1 %; Platelet Count 221 K/uL (130-400); RDW Coefficient of Variation 12.4 % (11.5-14.5); RDW Standard Deviation 40.8 fL (36.4-46.3); White Blood Count 19.38 K/ul (4.8-10.8)
[2022-04-29 13:03] LABS: Albumin Globulin Ratio 1.4 (0.9-2); Albumin Level 4.6 gm/dl (3.4-5.0); BUN Creatinine Ratio 20.3 (10-20); Bilirubin,Total 0.5 mg/dl (0.2-1.0); Calcium 9.8 mg/dl (8.5-10.1); Creatinine Clr Calc Pharmacy 68.3 ml/min; Est GFR (African American) 91.9 ml/min; Est GFR (Non-African American) 79.3 ml/min; Globulin 3.2 gm/dl (2.5-4.0); Potassium 3.6 mmol/L (3.5-5.1); Total Protein 7.8 gm/dl (6.0-8.3)
[2022-04-29 13:53] LABS: Appearance Urine Clear (Clear); Bacteria Urine Automated Negative (Negative); Bilirubin Urine Negative (Negative); Blood Urine Negative (Negative); Cast Urine Automated 0 /lpf (0-5); Color Urine Yellow; Glucose Urine UA Negative (Negative); Ketones Urine Negative (Negative); Leukocyte Esterase Urine Trace (Negative); Nitrite Urine Negative (Negative); Protein Urine Negative (Negative); RBC Urine Automated 0-4 /hpf (0-4); Specific Gravity Urine 1.012 (1.000-1.030); Urobilinogen Urine Negative (Negative); pH Urine 7.5 (4.5-7.5)
[2022-04-29] MEDS ORDERED: OPTIRAY 350 100ml IV ONE (13:56)
--- NOTE | 2022-04-29 14:26 | CT Scan Report ---
CT SCAN OF THE ABDOMEN AND PELVIS WITH IV CONTRAST CLINICAL HISTORY: Generalized abdominal pain. Hematochezia. COMPARISON STUDY: Abdominal CT dated 09/21/2021. TECHNIQUE: Following the IV administration of 85 cc of Optiray 350, CT scan of the abdomen and pelvi s is performed from the lung bases to the proximal femora. Images are reviewed in the axial, sagittal , and coronal planes. IV contrast was administered without complication. A dose lowering technique wa s utilized adhering to the principles of ALARA. CT DOSE: 374.77 mGy.cm FINDINGS: Lung bases: The heart is normal in size and without pericardial effusion. The lung bases are clear. T here is a kgibv-fi-xlqexdnm hiatal hernia. Liver: The contrast-enhanced liver is normal in size, contour, and attenuation. There is no intrahepa tic biliary ductal dilatation. There is nonocclusive thrombus within the intrahepatic right and left lobe portal veins. This is best seen on axial images #93 and #94. The main portal vein is patent. The re is thrombus within the inferior mesenteric vein seen on image #141. Hepatic veins are clear. Gallbladder: Unremarkable. Spleen: Normal in size and attenuation. Pancreas: Unremarkable. Adrenal glands: Unremarkable. Kidneys: The contrast enhanced kidneys are normal in size and without hydronephrosis. The kidneys enh ance symmetrically. A 3.5 cm cyst is seen in the right lower pole. Abdominal vasculature: The abdominal aorta is normal in course and caliber noting mild atheroscleroti c calcification. Bowel: There is mild colonic diverticulosis without CT evidence of acute diverticulitis. There is a l sydni segment of thick-walled and edematous colon. This extends from the distal transverse colon to the sigmoid with surrounding inflammation, and this is consistent with a nonspecific colitis. No bowel o bstruction is seen. The appendix is well-visualized and normal. Peritoneum: There is no intraperitoneal free air or abdominal ascites. There is a small fat-containin g umbilical hernia. Lymphadenopathy: None. Pelvic viscera: The bladder is decompressed and not well assessed. The uterus is surgically absent. N o adnexal lesion is seen. Skeletal structures: The skeletal structures are osteopenic. No lytic or blastic lesions are seen. IMPRESSION: 1. There is nonocclusive thrombus within the right and left intrahepatic portal veins. There is also thrombus within the inferior mesenteric vein. 2. There is a nonspecific colitis of the left colon. Although this could be on an infectious or infla mmatory basis, this could also be related to venous ischemia given the findings of mesenteric venous thrombus. Clinical correlation will be required. 3. Colonic diverticulosis without CT evidence of acute diverticulitis. 4. Additional findings as above. ACT 112: Negative or not required by law. Electronically signed by: Solitario Marrero M.D. 04/29/2022 2:24 PM
--- NOTE | 2022-04-29 15:15 | Emergency Department Note ---
ED Visit Note I was consulted by the Advanced Practice Provider Jv Coburn PA-C. I saw the patient personally and performed a substantive portion of the visit. This includes aspects of the HPI, MDM, diagnostic interpretations, and disposition/plan. Patient did present due to concern for diarrhea nausea and vomiting. Blood work is obtained along with a CT of the abdomen and pelvis. The patient does have a colitis. There is noted to be clot. The patient does not have significant pain on exam bicarb is normal. Believe mesenteric ischemia to be less likely. Patient was admitted to the hospitalist service. .
--- NOTE | 2022-04-29 15:31 | History & Physical Report ---
Date of Service April 29, 2022 Assessment & Plan (1) Bloody diarrhea: Plan: -Admit to med/tele -The patient is currently afebrile, hemodynamically stable, and stable on RA -Started having nausea, vomiting, bloody diarrhea, and abd pain this am. Noted to have significant leukocytosis with left shift on CBC, renal function, electrolytes, and liver function are WNL, lactate of 1.1 -CT of the abd/pelvis with IV contrast notes a a non-specific colitis in the left colon with "nonocclusive thrombus within the right and left intrahepatic portal veins. There is also thrombus within the inferior mesenteric vein.". -At this time the differential includes both infectious colitis vs ischemic colitis -Requested the ED consult General Surgery, appreciate Dr. Spivey's quick response, ok to admit patient to medicine service and to start IV heparin -ECG shows NSR, no previous hx of arrhythmias -Will start her on Cefepime and flagyl for now -Follow stool studies/blood cultures and tailor abx to their results -Per Surgery, Keep NPO but can have sips of water and ice chips -S/P 500 mL NSS in the ED, will continue with LR 1L bolus then 100 mL/hr x 24 hours since NPO -Pain control with 1000 mg IV tylenol q8h prn pain1,2,3 headach, or fever, , 2 mg IV morphine q3h prn severe pain -IV heparin for DVT PPX -AM CBC, CMP, Mag, PT/INR, aPTT (2) Inferior mesenteric vein thrombosis: Plan: -Also noted to have nonocclusive thrombus within the right and left intrahepatic portal veins. -See bloody diarrhea (3) Abdominal pain: Plan: -See bloody diarrhea (4) Hypercholesteremia: Plan: -Continue statin (5) Hypothyroidism: Plan: -Continue levothyroxine (6) Anxiety: Plan: -Continue Sertraline and prn ativan for now -Would recommend PCP try and taper her off benzodiazepines at her age (7) Insomnia: Plan: -Will try prn melatonin -If needed can order her home Zolpidem Plan The patient was discussed with Dr. Aguilar at the time of the admission History of Present Illness Chief Complaint: Nausea, vomiting, bloody diarrhea Primary Care Provider: DO Be Cheungothy is a 77 year old female with a PMH significant for hypothyroidism, hyperlipidemia, anxiety, insomnia, and chronic back pain who presented to the [facility] ED on 04/29/22 with complaints of nausea, vomiting, and bloody diarrhea. In the Ed the patient was found to be afebrile, hemodynamically stable, and stable on RA. Labs were remarkable for a leukocytosis of 19 with left shift of 17, stable Hgb at 14 with platelets of 221, lymphocyte count of 0.84, stable Cr at 0.74 with stable electrolytes, LFT's WNL, lactate of 1.1, lipase of 29 with TSH WNL, UA not suggestive of UTI. CT of the abdomen/pelvis with IV contrast was read as "1. There is nonocclusive thrombus within the right and left intrahepatic portal veins. There is also thrombus within the inferior mesenteric vein. 2. There is a nonspecific colitis of the left colon. Although this could be on an infectious or inflammatory basis, this could also be related to venous ischemia given the findings of mesenteric venous thrombus. Clinical correlation will be required. 3. Colonic diverticulosis without CT evidence of acute diverticulitis. 4. Additional findings as above.". Prior to admission the patient was given a 500 mL NSS bolus, 4 mg IV morphine, and 4 mg IV zofran. At the time of the exam the patient was lying in bed in no acute distress with her daughter sitting bedside, history was obtained from both. The patient has been recovering from a Covid 19 infection approximately one month ago. Since then she has felt more generally weak but did not require medications or hospitalization for her covid infection. Yesterday her generalized weakness increased and she had decreased appetite. She was woken up this am around 0500 with severe abdominal pain throughout. She describes the pain as sharp/cramping which is constant but will have waves of more severe pain. She noted the pain to be most severe on the left side of her abdomen. She has had approximately 4-5 episodes of diarrhea since 0500. With her first episode of diarrhea she did not noticed blood. With subsequent bowel movements she first noticed blood on the toilet paper then in her stool. She denies fevers but has had chills. She denies chest pain SOB, vomiting, dysuria, hematuria, melena, BL LE swelling and recent trauma. She has been nauseous but has not yet vomited. Her abdominal pain is currently controlled after receiving her second dose of morphine. We discussed code status, she wishes to be a full code and for her Son and Daughter to make decisions for her if she cannot make them herself. Please refer to Dr. Aguilar's attestation for any changes to the treatment plan Allergies Allergy/AdvReac Type Severity Reaction Status Date / Time Penicillins Allergy Mild Skin Verified 04/29/22 13:03 redness ciprofloxacin AdvReac Mild N/V Verified 04/29/22 13:03 Gxbocrx-VDG-MxK Reductase AdvReac Mild Muscle Pain Verified 04/29/22 13:03 Inhibitor [Wownzii-Yye-Eev Reductase Inhibitor] Sulfa (Sulfonamide AdvReac Mild N/V Verified 04/29/22 13:03 Antibiotics) clonazepam AdvReac Verified 04/29/22 13:03 Home Medications Medication Instructions Recorded Confirmed Type diphenhydramine HCl 25 mg tablet 25 mg PO HS PRN Sleep 08/10/20 04/29/22 History (Sleep Aid (diphenhydramine)) omeprazole 20 mg tablet,delayed 20 mg PO UD PRN Acid Reflux #30 11/03/20 04/29/22 Rx release tabs zolpidem 5 mg tablet (Ambien) 5 mg PO HS PRN insomnia #30 tabs 05/19/21 04/29/22 Rx levothyroxine 100 mcg tablet 100 mcg PO QAM #90 tabs 08/09/21 04/29/22 Rx (Synthroid) acetaminophen 500 mg tablet 500 mg PO Q6H PRN Pain 09/21/21 04/29/22 History (Tylenol Extra Strength) bismuth subsalicylate 262 mg/15 mL 0 mg PO QID PRN gi-upset 09/21/21 04/29/22 History oral suspension (Pepto-Bismol) triamcinolone acetonide 0.1 % 1 applic topical BID PRN flare ups 09/21/21 04/29/22 History topical cream clotrimazole 10 mg taye 10 mg mucous membrane 5XD 7 days 09/25/21 04/29/22 Rx #35 tabs sertraline 100 mg tablet (Zoloft) 150 mg PO DAILY #135 tabs 10/10/21 04/29/22 Rx lorazepam 0.5 mg tablet 0.5 mg PO Q12H PRN stressful event 04/17/22 04/29/22 Rx or symptoms #60 tabs cholecalciferol (vitamin D3) 10 0 mcg PO DAILY 04/29/22 04/29/22 History mcg (400 unit) capsule (Vitamin D3) multivitamin 1 tab PO DAILY 04/29/22 04/29/22 History Past Med/Surg History Medical History (Updated 04/29/22 @ 17:21 by Rod Coburn) Acid reflux Anxiety Chronic back pain Chronic obstructive pulmonary disease Colitis Non specific colitis on 06/18/19 CT scan- treated/symptoms resolved Degenerative disc disease Depression Hearing deficit Hypercholesteremia Hypothyroidism Spinal stenosis Surgical History History of back surgery 08/10/20 History of bilateral tubal ligation History of colonoscopy History of dilatation and curettage x2 History of left breast biopsy benign History of left cataract surgery History of lumbar discectomy History of right cataract surgery History of tooth extraction History of total hysterectomy with bilateral salpingo-oophorectomy (BSO) Nausea and vomiting after administration of anesthetic agent Single episode with back surgery () Family History Son Allergies Asthma Brother Liver cancer Hearing loss Cardiac disorder Family history of diabetes mellitus multiple brothers Family hx of colon cancer Sister Hearing loss Cardiac disorder Family history of diabetes mellitus multiple sisters Family hx colonic polyps Family/Other Neoplasm of gastrointestinal tract Breast cancer Hypertension Other No family history of adverse response to anesthesia Social History Smoking Status: Never smoker Second Hand Exposure: No; Hx Alcohol Use: No Hx Substance Use: No Preferred Language: French Communication Ability: Effective Visual Impairment: No Limitations Hearing Ability: Hard of Hearing Biotechnologist Required: No Beliefs That Will Affect Care: None marital status: Current Living Situation: Spouse current occupational status: retired current occupation: used to work in retail Feels Safe at Home: Yes Childhood Exposure to Second-Hand Smoke: Yes Dental Care, Regularly: Yes Physical Activity Frequency: Does not Exercise Seatbelt Use: always Sunscreen Use: No Assistive Devices: Walker Review of Systems Review of Systems: Denies current headache, changes in vision, hearing, taste, and smell, chest pain, SOB, cough, vomiting, hematemesis, melena, dysuria, hematuria, and recent falls. All systems have been reviewed and are otherwise negative. Physical Exam Physical Exam: Physical Exam: General: In no acute distress, stated age, currently ill-appearing HEENT: Normocephalic, atraumatic, no scleral icterus, pupils around round, symmetrical, and reactive to light, dry mucus membranes, trachea midline, no thyromegaly Chest/Pulm: No respiratory distress, symmetrical chest expansion, clear breath sounds throughout Cardiac: RRR, no murmurs noted Abdomen: Negative for ascites and bruising, normoactive bowel sounds, soft, tender to palpation in the BL lower abdominal vincent and left upper abdominal field with mild rebound tenderness Musculoskeletal: Symmetrical and without signs of acute trauma, upper and lower extremities with full ROM, no atrophy, spasticity, or flaccidity Extremities: Radial, dorsalis pedis, and posterior tibial pulses are intact and symmetrical, no edema noted in the BL LE's Skin: Warm, dry, no rashes , lesions, or scars noted Neuro: Alert and oriented to person, place, month, year, and president, no focal defects, CN II-XII tested and intact, no tremors noted Psych: No acute distress, calm and cooperative during the exam Results & Data Results & Data ([facility]) Vital Signs (Past 12 Hours) Vital Signs Temp Pulse Pulse Resp BP BP Pulse Ox 04/29/22 12:11 64 147/70 H 99 04/29/22 11:29 36.6 C 83 16 161/78 H 98 Laboratory Results Abnormal lab results 04/29/22 04/29/22 04/29/22 Range/Units 12:06 12:06 12:06 WBC 19.38 H (4.8-10.8) K/ul Neut # (Auto) 17.26 H (1.40-6.50) K/uL Lymph # (Auto) 0.84 L (1.2-3.4) K/uL [place] # (Auto) 1.11 H (0.11-0.59) K/uL BUN/Creatinine Ratio 20.3 H (10-20) Glucose 121 H (70-99(Fasting)) mg/dl Ur Leukocyte Esterase Trace H (Negative) U Epithel Cells (Auto) 10-20 H (0-5) /lpf Diagnostic Findings Abdomen/Pelvis CT 04/29/22 11:48 CT SCAN OF THE ABDOMEN AND PELVIS WITH IV CONTRAST CLINICAL HISTORY: Generalized abdominal pain. Hematochezia. COMPARISON STUDY: Abdominal CT dated 09/21/2021. TECHNIQUE: Following the IV administration of 85 cc of Optiray 350, CT scan of the abdomen and pelvis is performed from the lung bases to the proximal femora. Images are reviewed in the axial, sagittal, and coronal planes. IV contrast was administered without complication. A dose lowering technique was utilized adhering to the principles of ALARA. CT DOSE: 374.77 mGy.cm FINDINGS: Lung bases: The heart is normal in size and without pericardial effusion. The lung bases are clear. There is a tvifj-rw-fuakhodz hiatal hernia. Liver: The contrast-enhanced liver is normal in size, contour, and attenuation. There is no intrahepatic biliary ductal dilatation. There is nonocclusive thrombus within the intrahepatic right and left lobe portal veins. This is best seen on axial images #93 and #94. The main portal vein is patent. There is thrombus within the inferior mesenteric vein seen on image #141. Hepatic veins are clear. Gallbladder: Unremarkable. Spleen: Normal in size and attenuation. Pancreas: Unremarkable. Adrenal glands: Unremarkable. Kidneys: The contrast enhanced kidneys are normal in size and without hydronephrosis. The kidneys enhance symmetrically. A 3.5 cm cyst is seen in the right lower pole. Abdominal vasculature: The abdominal aorta is normal in course and caliber noting mild atherosclerotic calcification. Bowel: There is mild colonic diverticulosis without CT evidence of acute diverticulitis. There is a long segment of thick-walled and edematous colon. This extends from the distal transverse colon to the sigmoid with surrounding inflammation, and this is consistent with a nonspecific colitis. No bowel obstruction is seen. The appendix is well-visualized and normal. Peritoneum: There is no intraperitoneal free air or abdominal ascites. There is a small fat-containing umbilical hernia. Lymphadenopathy: None. Pelvic viscera: The bladder is decompressed and not well assessed. The uterus is surgically absent. No adnexal lesion is seen. Skeletal structures: The skeletal structures are osteopenic. No lytic or blastic lesions are seen. IMPRESSION: 1. There is nonocclusive thrombus within the right and left intrahepatic portal veins. There is also thrombus within the inferior mesenteric vein. 2. There is a nonspecific colitis of the left colon. Although this could be on an infectious or inflammatory basis, this could also be related to venous ischemia given the findings of mesenteric venous thrombus. Clinical correlation will be required. 3. Colonic diverticulosis without CT evidence of acute diverticulitis. 4. Additional findings as above. ACT 112: Negative or not required by law. Electronically signed by: Solitario Marrero M.D. 04/29/2022 2:24 PM ECG Additional Comments: Poor data quality, interpretation may be adversely affected Normal sinus rhythm Normal ECG When compared with ECG of 01-AUG-2020 10:58, No significant change was found Code Status & VTE Plan Code Status Full code VTE Prophylaxis Plan VTE Prophylaxis will be ordered: Yes Supervising Physician Co-Signing Physician Notes I personally saw and examined the patient. I verified all lott points and agree with Donald Sow PA-C with the following exceptions and/or additions: 77 year old female presents with abdominal pain and bloody diarrhea. Symptoms sudden onset this morning. Colonoscopy performed in 2019 - diverticulosis, one 4mm polyp, non-bleeding internal hemorrhoids. Similar non-specific colitis on left side in May 2019 seen in the ER and was discharged with metronidazole and improved. No history of c. diff or recent antibiotic use. O/E HS RRR, no murmurs, Chest CTAB, Abdo generalized tenderness but much worse LLQ with guarding and rebound tenderness A/P Colitis - ischemic vs. inflammatory vs. infectious. Stool PCR and c. diff testing pending. Mesenteric and intrahepatic vein thrombus - NPO, IV fluids, start heparin standard with bolus. Cefepime/metronidazole as antibiotic prophylaxis. Consult surgery. PG Care Time/CCT Total # of Minutes Spent Total Time Spent with Patient: Total time spent is greater than 50% in coordination of care (as documented) at patient's floor/unit and/or counseling patient: C[place] [address] INT INP/OBS CARE 375MIN Patient Type Established Medical Decision Making High Complexity Diagnoses Bloody diarrhea R19.7 Inferior mesenteric vein thrombosis K55.069 Abdominal pain R10.9 Abdominal location: unspecified location Hypercholesteremia E78.00 Hypothyroidism E03.9 Anxiety F41.9 Insomnia G47.00 (3) Abdominal pain Abdominal location: unspecified location Qualified Code(s): R10.9 - Unspecified abdominal pain
[2022-04-29 16:27] LABS: Partial Thromboplastin Ratio 0.9; Partial Thromboplastin Time 24.6 Seconds (21.0-31.0); Prothrombin Time 10.7 Seconds (9.0-12.0)
--- NOTE | 2022-04-29 16:38 | Surgery Consultation ---
Date of Consultation April 29, 2022 Assessment & Plan (1) Colitis: Plan Unknown if this is ischemic or infectious Also with thrombus within the mesenteric vein and intrahepatic veins We will treat patient with IV fluids, limited p.o. intake for 24 to 48 hours, IV antibiotics I believe IV heparin would be appropriate May consider GI evaluation at some point Check of C. difficile Nonoperative treatment at the present time History of Present Illness History of Present Illness 77-year-old female presented emergency room with nausea vomiting diarrhea which is somewhat bloody and some abdominal pain which seems to be crampy She underwent CAT scan which shows left-sided colitis which extends to the from the distal transverse colon to the sigmoid She also has evidence of thrombus within the inferior mesenteric vein and right and left portal veins intrahepatically the portal vein is patent Allergies Allergy/AdvReac Type Severity Reaction Status Date / Time Penicillins Allergy Mild Skin Verified 04/29/22 13:03 redness ciprofloxacin AdvReac Mild N/V Verified 04/29/22 13:03 Ofdyeaw-ASW-LeH Reductase AdvReac Mild Muscle Pain Verified 04/29/22 13:03 Inhibitor [Yzilwmw-Pnv-Wut Reductase Inhibitor] Sulfa (Sulfonamide AdvReac Mild N/V Verified 04/29/22 13:03 Antibiotics) clonazepam AdvReac Verified 04/29/22 13:03 Home Medications Medication Instructions Recorded Confirmed Type diphenhydramine HCl 25 mg tablet 25 mg PO HS PRN Sleep 08/10/20 04/29/22 History (Sleep Aid (diphenhydramine)) omeprazole 20 mg tablet,delayed 20 mg PO UD PRN Acid Reflux #30 11/03/20 04/29/22 Rx release tabs zolpidem 5 mg tablet (Ambien) 5 mg PO HS PRN insomnia #30 tabs 05/19/21 04/29/22 Rx levothyroxine 100 mcg tablet 100 mcg PO QAM #90 tabs 08/09/21 04/29/22 Rx (Synthroid) acetaminophen 500 mg tablet 500 mg PO Q6H PRN Pain 09/21/21 04/29/22 History (Tylenol Extra Strength) bismuth subsalicylate 262 mg/15 mL 0 mg PO QID PRN gi-upset 09/21/21 04/29/22 History oral suspension (Pepto-Bismol) triamcinolone acetonide 0.1 % 1 applic topical BID PRN flare ups 09/21/21 04/29/22 History topical cream clotrimazole 10 mg taye 10 mg mucous membrane 5XD 7 days 09/25/21 04/29/22 Rx #35 tabs sertraline 100 mg tablet (Zoloft) 150 mg PO DAILY #135 tabs 10/10/21 04/29/22 Rx lorazepam 0.5 mg tablet 0.5 mg PO Q12H PRN stressful event 04/17/22 04/29/22 Rx or symptoms #60 tabs cholecalciferol (vitamin D3) 10 0 mcg PO DAILY 04/29/22 04/29/22 History mcg (400 unit) capsule (Vitamin D3) multivitamin 1 tab PO DAILY 04/29/22 04/29/22 History Patient History Medical History (Updated 04/29/22 @ 16:37 by Abelardo Spivey MD, FACS) Acid reflux Anxiety Chronic back pain Chronic obstructive pulmonary disease Colitis Non specific colitis on 06/18/19 CT scan- treated/symptoms resolved Degenerative disc disease Depression Hearing deficit Hypercholesteremia Hypothyroidism Spinal stenosis Surgical History History of back surgery 08/10/20 History of bilateral tubal ligation History of colonoscopy History of dilatation and curettage x2 History of left breast biopsy benign History of left cataract surgery History of lumbar discectomy History of right cataract surgery History of tooth extraction History of total hysterectomy with bilateral salpingo-oophorectomy (BSO) Nausea and vomiting after administration of anesthetic agent Single episode with back surgery () Family History Son Allergies Asthma Brother Liver cancer Hearing loss Cardiac disorder Family history of diabetes mellitus multiple brothers Family hx of colon cancer Sister Hearing loss Cardiac disorder Family history of diabetes mellitus multiple sisters Family hx colonic polyps Family/Other Neoplasm of gastrointestinal tract Breast cancer Hypertension Other No family history of adverse response to anesthesia Social History Smoking Status: Never smoker Second Hand Exposure: No; Hx Alcohol Use: No Hx Substance Use: No Preferred Language: Malagasy Communication Ability: Effective Visual Impairment: No Limitations Hearing Ability: Hard of Hearing Blind Hooker Required: No Beliefs That Will Affect Care: None marital status: Current Living Situation: Spouse current occupational status: retired current occupation: used to work in retail Feels Safe at Home: Yes Childhood Exposure to Second-Hand Smoke: Yes Dental Care, Regularly: Yes Physical Activity Frequency: Does not Exercise Seatbelt Use: always Sunscreen Use: No Assistive Devices: Walker Review of Systems Review of Systems: All systems reviewed & are unremarkable except as noted in HPI & below Physical Exam Physical Exam: Patient is awake and alert She did receive some pain medication She is in no distress Her abdomen is relatively soft but she does have some discomfort to deep palpation especially in the left side Constitutional: well nourished; no acute distress Eyes: + anicteric sclerae Respiratory: normal respiratory effort; no respiratory distress Cardiovascular: Rate/Rhythm: regular rate Gastrointestinal (Abdomen): Inspection/Auscultation: abdomen not distended Musculoskeletal: Head/Neck/Chest: head atraumatic Skin: no rashes, warm and dry Neurologic: awake Psychiatric: Orientation: alert Results & Data ([facility]) Vital Signs (Past 12 Hours) Vital Signs Temp Pulse Pulse Resp BP BP Pulse Ox 04/29/22 12:11 64 147/70 H 99 04/29/22 11:29 36.6 C 83 16 161/78 H 98 Laboratory Results I reviewed her laboratories Diagnostic Findings I did review her CAT scan and films PG Care Time/CCT Total # of Minutes Spent Total Time Spent with Patient: Total time spent is greater than 50% in coordination of care (as documented) at patient's floor/unit and/or counseling patient: Coding Level of Care Code 12780 Office/Outpt Visit, New Diagnoses Colitis K52.9
[2022-04-29] MEDS ORDERED: Heparin IV Adult Wt-Based Standard *NO* Bolus Protocol IV SCH (16:39)
[2022-04-29] MEDS ORDERED: LACTATED RINGER'S 1,000 ML IV ONE (16:42)
[2022-04-29] MEDS ORDERED: ACETAMINOPHEN 1,000 MG/100 ML VIAL IV PRN (16:50)
[2022-04-29] MEDS: HEPARIN SODIUM/DEXTROSE 25,000 UNITS/500 ML BAG IV SCH (17:35)
[2022-04-29] MEDS: CEFEPIME 2,000 MG in SYRINGE 0 ML IV SCH (17:37)
[2022-04-29] MEDS: metroNIDAZOLE 500 MG/100 ML BAG IV SCH (17:53)
[2022-04-29] MEDS ORDERED: ONDANSETRON INJ 2 MG/ML 2 ML VIAL ONE (19:31)
[2022-04-29] MEDS: MoRPHine SULFATE 2 MG/ML CARP IV PRN ×2 (19:36→22:43)
[2022-04-29 20:39] LABS: Adenovirus F 40/41 PCR Not Detected (NotDetected); Astrovirus PCR Not Detected (NotDetected); Campylobacter PCR Not Detected (NotDetected); Cryptosporidium PCR Not Detected (NotDetected); Cyclospora cayetanensis PCR Not Detected (NotDetected); Entamoeba histolytica PCR Not Detected (NotDetected); Enteroaggregative E.coli(EAEC) Not Detected (NotDetected); Enteropathogenic E.coli (EPEC) Not Detected (NotDetected); Enterotoxigenic E.coli (ETEC) Not Detected (NotDetected); Giardia lamblia PCR Not Detected (NotDetected); Norovirus GI/GII PCR Not Detected (NotDetected); Plesiomonas shigelloides PCR Not Detected (NotDetected); Rotavirus A PCR Not Detected (NotDetected); Salmonella PCR Not Detected (NotDetected); Sapovirus PCR Not Detected (NotDetected); Shiga-like Toxin E.coli (STEC) Not Detected (NotDetected); Shigella/Enteroinvasive E.coli Not Detected (NotDetected); Vibrio cholerae PCR Not Detected (NotDetected); Vibrio species PCR Not Detected (NotDetected); Yersinia enterocolitica PCR Not Detected (NotDetected)
[2022-04-29 20:47] LABS: Cdiff Toxin B Gene (2yr or >) Positive Cdiff Gene (Neg)
[2022-04-29] MEDS ORDERED: LORazepam 2 MG/1 ML VIAL IV ONE (21:11)
[2022-04-29 21:39] LABS: Cdiff Antigen Positive
[2022-04-29 21:40] LABS: Cdiff Toxin A+B Negative Cdiff Toxin (Negative)
[2022-04-29] MEDS: LACTATED RINGER'S 1,000 ML IV SCH (22:40)
[2022-04-30 00:23] LABS: Partial Thromboplastin Ratio 1.8
[2022-04-30 00:27] LABS: Partial Thromboplastin Time 49.8 Seconds (21.0-31.0)
[2022-04-30] MEDS: metroNIDAZOLE 500 MG/100 ML BAG IV SCH ×3 (01:23→17:20)
[2022-04-30] MEDS: CEFEPIME 2,000 MG in SYRINGE 0 ML IV SCH ×3 (01:24→16:59)
[2022-04-30] MEDS: MoRPHine SULFATE 2 MG/ML CARP IV PRN (06:21)
[2022-04-30] MEDS: ONDANSETRON INJ 2 MG/ML 2 ML VIAL IV PRN (06:21)
[2022-04-30 06:47] LABS: Basophils # (auto) 0.06 K/uL (0-0.2); Basophils % (auto) 0.3 %; Eosinophils # (auto) 0.05 K/uL (0-0.50); Eosinophils % (auto) 0.3 %; Hematocrit (blood only) 35.2 % (37.0-47.0); Hemoglobin 12.1 g/dl (12.0-16.0); Immature Granulocytes # (auto) 0.13 K/uL (0.01-0.20); Immature Granulocytes % (auto) 0.7 %; Lymphocytes # (auto) 1.32 K/uL (1.2-3.4); Lymphocytes % (auto) 7.3 %; Mean Corpuscular Hemoglobin 30.9 pg (25.0-34.0); Mean Corpuscular Hgb Conc 34.4 g/dL (32.0-36.0); Monocytes # (auto) 1.75 K/uL (0.11-0.59); Monocytes % (auto) 9.6 %; Neutrophils # (auto) 14.84 K/uL (1.40-6.50); Neutrophils % (auto) 81.8 %; Platelet Count 191 K/uL (130-400); RDW Coefficient of Variation 12.7 % (11.5-14.5); RDW Standard Deviation 41.8 fL (36.4-46.3); Red Blood Count 3.91 M/uL (4.20-5.40); White Blood Count 18.15 K/ul (4.8-10.8)
[2022-04-30 07:15] LABS: Albumin Globulin Ratio 1.5 (0.9-2); Albumin Level 3.7 gm/dl (3.4-5.0); BUN Creatinine Ratio 13.4 (10-20); Bilirubin,Total 0.5 mg/dl (0.2-1.0); Calcium 8.8 mg/dl (8.5-10.1); Chol HDL Ratio 4.1 (0-5); Creatinine Clr Calc Pharmacy 75.9 ml/min; Est GFR (African American) 99.7 ml/min; Globulin 2.5 gm/dl (2.5-4.0); Magnesium 1.7 mg/dl (1.7-2.4); Potassium 3.9 mmol/L (3.5-5.1); Total Protein 6.2 gm/dl (6.0-8.3)
[2022-04-30 07:46] LABS: INR 1.1 (0.9-1.1); Partial Thromboplastin Ratio 2.2; Prothrombin Time 11.8 Seconds (9.0-12.0)
[2022-04-30 07:50] LABS: Partial Thromboplastin Time 60.4 Seconds (21.0-31.0)
[2022-04-30] MEDS: SERTRALINE HCL 50 MG TABLET PO SCH (08:24)
[2022-04-30] MEDS: LEVOTHYROXINE SODIUM 100 MCG TABLET PO SCH (08:24)
[2022-04-30] MEDS: LACTATED RINGER'S 1,000 ML IV SCH ×2 (08:24→16:59)
--- NOTE | 2022-04-30 08:56 | Hospitalist Progress Note ---
Date of Service April 30, 2022 Assessment & Plan (1) Bloody diarrhea: Plan: - Admitted to med/tele - The patient is currently afebrile, hemodynamically stable, and stable on RA - Started having nausea, vomiting, bloody diarrhea, and abd pain this am. Noted to have significant leukocytosis with left shift on CBC, renal function, electrolytes, and liver function are WNL, lactate of 1.1 - CT of the abd/pelvis with IV contrast notes a a non-specific colitis in the l eft colon with "nonocclusive thrombus within the right and left intrahepatic portal veins. There is also thrombus within the inferior mesenteric vein.". - At this time the likely diagnosis is ischemic colitis - General surgery consulted and recommended to continue IV antibx, check C Diff (negative toxin), and limit po intake x 24-48 hrs - ECG shows NSR, no previous hx of arrhythmias - Had a dose of Cefepime and Flagyl in ER - Stool studies all negative - Follow blood cultures and tailor abx to their results - Per Surgery, Keep NPO but can have sips of water and ice chips - S/P 500 mL NSS in the ED, will continue with LR 1L bolus then 100 mL/hr x 24 hours since NPO - Pain control with 1000 mg IV Tylenol q8h prn pain1,2,3 headache, or fever, , 2 mg IV morphine q3h prn severe pain - IV heparin for DVT PPX - Repeat AM CBC, CMP, Mag, PT/INR, aPTT (2) Inferior mesenteric vein thrombosis: Plan: - Also noted to have nonocclusive thrombus within the right and left intrahepatic portal veins. - See bloody diarrhea (3) Abdominal pain: Plan: - See bloody diarrhea (4) Hypercholesteremia: Plan: - Continue statin (5) Hypothyroidism: Plan: - Continue levothyroxine (6) Anxiety: Plan: - Continue Sertraline and prn ativan for now - Would recommend PCP try and taper her off benzodiazepines at her age (7) Insomnia: Plan: - Will try prn melatonin - If needed can order her home Zolpidem Plan The patient was discussed with Dr. Krishna Admission and Anticipated Discharge Date Admission Date: April 29, 2022 Subjective Patient is awake laying in bed. She states she is having less diarrhea and less bleeding. She has only had one loose bloody diarrheal episode through the evening and none thus far this AM. She denies any CP, SOB or dyspnea. She is still having left sided abdominal discomfort requiring pain medications. She has no nausea or vomiting. Review of Systems Review of Systems: Denies current headache, changes in vision, hearing, taste, and smell, chest pain, SOB, cough, vomiting, hematemesis, melena, dysuria, hematuria, and recent falls. All systems have been reviewed and are otherwise negative. Physical Exam Constitutional: WD/WN, vitals as above ENMT: external ear and nose normal, oropharynx normal Neck: trachea midline, no thyromegaly Respiratory: normal respiratory effort, lungs clear to auscultation Cardiovascular: RRR, no murmur, no edema Gastrointestinal (Abdomen): Inspection/Auscultation: abdomen normal to i nspection Percussion/Palpation: + abdomen tender and abdomen soft; no guarding, abdomen not rigid and no hepatomegaly tender to palpation left side of abdomen Skin: no rashes, warm and dry Psychiatric: A+Ox3, euthymic affect Results & Data Results & Data ([facility]) Vital Signs (Past 12 Hours) Vital Signs Temp Pulse Pulse Resp BP BP Pulse Ox 04/30/22 07:41 36.9 C 85 16 118/55 L 92 04/30/22 07:15 72 04/30/22 03:04 36.9 C 78 16 121/55 L 91 04/30/22 00:33 76 04/29/22 23:33 37.1 C 89 18 117/63 94 04/29/22 22:00 36.8 C 71 18 149/61 H 94 O2 Del Method 04/30/22 07:41 Room Air 04/30/22 07:15 04/30/22 03:04 Room Air 04/30/22 00:33 04/29/22 23:33 Room Air 04/29/22 22:00 Room Air Laboratory Results Abnormal lab results 04/29/22 04/29/22 04/29/22 Range/Units 12:06 12:06 12:06 WBC 19.38 H (4.8-10.8) K/ul RBC (4.20-5.40) M/uL Hct (37.0-47.0) % Neut # (Auto) 17.26 H (1.40-6.50) K/uL Lymph # (Auto) 0.84 L (1.2-3.4) K/uL [place] # (Auto) 1.11 H (0.11-0.59) K/uL APTT (21.0-31.0) Seconds BUN/Creatinine Ratio 20.3 H (10-20) Glucose 121 H (70-99(Fasting)) mg/dl Cholesterol (0-200) mg/dl Ur Leukocyte Esterase Trace H (Negative) U Epithel Cells (Auto) 10-20 H (0-5) /lpf Stl C. diff Tox B Gene (Neg) 04/29/22 04/29/22 04/30/22 Range/Units 23:41 Unknown 05:36 WBC 18.15 H (4.8-10.8) K/ul RBC 3.91 L (4.20-5.40) M/uL Hct 35.2 L (37.0-47.0) % Neut # (Auto) 14.84 H (1.40-6.50) K/uL Lymph # (Auto) (1.2-3.4) K/uL [place] # (Auto) 1.75 H (0.11-0.59) K/uL APTT 49.8 H* (21.0-31.0) Seconds BUN/Creatinine Ratio (10-20) Glucose (70-99(Fasting)) mg/dl Cholesterol (0-200) mg/dl Ur Leukocyte Esterase (Negative) U Epithel Cells (Auto) (0-5) /lpf Stl C. diff Tox B Gene Positive Cdiff Gene H (Neg) 04/30/22 04/30/22 Range/Units 05:36 05:36 WBC (4.8-10.8) K/ul RBC (4.20-5.40) M/uL Hct (37.0-47.0) % Neut # (Auto) (1.40-6.50) K/uL Lymph # (Auto) (1.2-3.4) K/uL [place] # (Auto) (0.11-0.59) K/uL APTT 60.4 H* (21.0-31.0) Seconds BUN/Creatinine Ratio (10-20) Glucose 120 H (70-99(Fasting)) mg/dl Cholesterol 260 H (0-200) mg/dl Ur Leukocyte Esterase (Negative) U Epithel Cells (Auto) (0-5) /lpf Stl C. diff Tox B Gene (Neg) Diagnostic Findings Abdomen/Pelvis CT 04/29/22 11:48 CT SCAN OF THE ABDOMEN AND PELVIS WITH IV CONTRAST CLINICAL HISTORY: Generalized abdominal pain. Hematochezia. COMPARISON STUDY: Abdominal CT dated 09/21/2021. TECHNIQUE: Following the IV administration of 85 cc of Optiray 350, CT scan of the abdomen and pelvis is performed from the lung bases to the proximal femora. Images are reviewed in the axial, sagittal, and coronal planes. IV contrast was administered without complication. A dose lowering technique was utilized adhering to the principles of ALARA. CT DOSE: 374.77 mGy.cm FINDINGS: Lung bases: The heart is normal in size and without pericardial effusion. The lung bases are clear. There is a gyicw-hq-abmdsmxb hiatal hernia. Liver: The contrast-enhanced liver is normal in size, contour, and attenuation. There is no intrahepatic biliary ductal dilatation. There is nonocclusive thrombus within the intrahepatic right and left lobe portal veins. This is best seen on axial images #93 and #94. The main portal vein is patent. There is thrombus within the inferior mesenteric vein seen on image #141. Hepatic veins are clear. Gallbladder: Unremarkable. Spleen: Normal in size and attenuation. Pancreas: Unremarkable. Adrenal glands: Unremarkable. Kidneys: The contrast enhanced kidneys are normal in size and without hydronephrosis. The kidneys enhance symmetrically. A 3.5 cm cyst is seen in the right lower pole. Abdominal vasculature: The abdominal aorta is normal in course and caliber noting mild atherosclerotic calcification. Bowel: There is mild colonic diverticulosis without CT evidence of acute diverticulitis. There is a long segment of thick-walled and edematous colon. Th is extends from the distal transverse colon to the sigmoid with surrounding inflammation, and this is consistent with a nonspecific colitis. No bowel obstruction is seen. The appendix is well-visualized and normal. Peritoneum: There is no intraperitoneal free air or abdominal ascites. There is a small fat-containing umbilical hernia. Lymphadenopathy: None. Pelvic viscera: The bladder is decompressed and not well assessed. The uterus is surgically absent. No adnexal lesion is seen. Skeletal structures: The skeletal structures are osteopenic. No lytic or blastic lesions are seen. IMPRESSION: 1. There is nonocclusive thrombus within the right and left intrahepatic portal veins. There is also thrombus within the inferior mesenteric vein. 2. There is a nonspecific colitis of the left colon. Although this could be on an infectious or inflammatory basis, this could also be related to venous ischemia given the findings of mesenteric venous thrombus. Clinical correlation will be required. 3. Colonic diverticulosis without CT evidence of acute diverticulitis. 4. Additional findings as above. ACT 112: Negative or not required by law. Electronically signed by: Solitario Marrero M.D. 04/29/2022 2:24 PM PG Care Time/CCT Total # of Minutes Spent Total Time Spent with Patient: Total time spent is greater than 50% in coordination of care (as documented) at patient's floor/unit and/or counseling patient: Coding Level of Care Code 40098 SUB INP/OBS CARE 2/35MIN Diagnoses Bloody diarrhea R19.7 Inferior mesenteric vein thrombosis K55.069 Abdominal pain R10.9 Abdominal location: unspecified location Hypercholesteremia E78.00 Hypothyroidism E03.9 Anxiety F41.9 Insomnia G47.00 (3) Abdominal pain Abdominal location: unspecified location Qualified Code(s): R10.9 - Unspecified abdominal pain
[2022-04-30] MEDS: PANTOprazole 40 MG in SYRINGE 0 ML IV SCH (10:50)
[2022-04-30] MEDS: HEPARIN SODIUM/DEXTROSE 25,000 UNITS/500 ML BAG IV SCH (12:16)
--- NOTE | 2022-04-30 12:59 | Surgery Progress Note ---
Date of Service April 30, 2022 Assessment & Plan (1) Colitis: Plan: Continue nonoperative care Patient could have some clear liquids from my standpoint Continue to check lab studies and cultures Continue IV antibiotics and IV fluids Admission and Anticipated Discharge Date Admission Date: April 29, 2022 Subjective Patient in the bathroom standing Still having some abdominal pain but seems to be slightly improved Vital signs are stable Review of Systems Review of Systems: All systems reviewed & are unremarkable except as noted in HPI & below Physical Exam Physical Exam: Patient is awake and alert She is in no distress Her abdomen is relatively soft but she does have some discomfort to deep palpation especially in the left side Constitutional: well nourished; no acute distress Eyes: + anicteric sclerae Respiratory: normal respiratory effort; no respiratory distress Cardiovascular: Rate/Rhythm: regular rate Gastrointestinal (Abdomen): Inspection/Auscultation: abdomen not distended Musculoskeletal: Head/Neck/Chest: head atraumatic Skin: no rashes, warm and dry Neurologic: awake Psychiatric: Orientation: alert Results & Data ([facility]) Vital Signs (Past 12 Hours) Vital Signs Temp Pulse Pulse Resp BP BP Pulse Ox 04/30/22 10:51 36.8 C 81 16 110/49 L 93 04/30/22 07:41 36.9 C 85 16 118/55 L 92 04/30/22 07:15 72 04/30/22 03:04 36.9 C 78 16 121/55 L 91 O2 Del Method 04/30/22 10:51 Room Air 04/30/22 07:41 Room Air 04/30/22 07:15 04/30/22 03:04 Room Air PG Care Time/CCT Total # of Minutes Spent Total Time Spent with Patient: Total time spent is greater than 50% in coordination of care (as documented) at patient's floor/unit and/or counseling patient: Coding Level of Care Code 00176 SUB INP/OBS CARE 03/14MIN Diagnoses Colitis K52.9
[2022-04-30] MEDS ORDERED: LORazepam 0.5 MG TAB PO PRN (20:40)
--- NOTE | 2022-04-30 23:06 | Electrocardiogram Report ---
Test Reason : Blood Pressure : / mmHG Vent. Rate : 081 BPM Atrial Rate : 081 BPM P-R Int : 142 ms QRS Dur : 076 ms QT Int : 396 ms P-R-T Axes : 065 052 060 degrees QTc Int : 460 ms Poor data quality, interpretation may be adversely affected Normal sinus rhythm Normal ECG When compared with ECG of 01-AUG-2020 10:58, No significant change was found Confirmed by Alexis Aquino ([id number]) on 04/30/2022 11:05:51 PM Referred By: REFERRED SELF Confirmed By:Alexis Aquino
[2022-05-01] MEDS: metroNIDAZOLE 500 MG/100 ML BAG IV SCH ×3 (01:09→16:29)
[2022-05-01] MEDS: CEFEPIME 2,000 MG in SYRINGE 0 ML IV SCH ×3 (01:09→16:29)
[2022-05-01] MEDS: HEPARIN SODIUM/DEXTROSE 25,000 UNITS/500 ML BAG IV SCH (08:01)
[2022-05-01] MEDS: SERTRALINE HCL 50 MG TABLET PO SCH (08:01)
[2022-05-01] MEDS: LEVOTHYROXINE SODIUM 100 MCG TABLET PO SCH (08:01)
[2022-05-01 09:19] LABS: Basophils # (auto) 0.06 K/uL (0-0.2); Basophils % (auto) 0.4 %; Eosinophils # (auto) 0.16 K/uL (0-0.50); Eosinophils % (auto) 1.1 %; Hematocrit (blood only) 36.9 % (37.0-47.0); Hemoglobin 12.2 g/dl (12.0-16.0); Immature Granulocytes % (auto) 0.7 %; Lymphocytes # (auto) 1.26 K/uL (1.2-3.4); Lymphocytes % (auto) 8.4 %; Mean Corpuscular Hemoglobin 30.2 pg (25.0-34.0); Mean Corpuscular Hgb Conc 33.1 g/dL (32.0-36.0); Mean Corpuscular Volume 91.3 fL (80.0-100.0); Mean Platelet Volume 10.9 fL (9.4-12.4); Monocytes # (auto) 1.09 K/uL (0.11-0.59); Monocytes % (auto) 7.2 %; Neutrophils # (auto) 12.39 K/uL (1.40-6.50); Neutrophils % (auto) 82.2 %; Platelet Count 188 K/uL (130-400); RDW Coefficient of Variation 12.8 % (11.5-14.5); RDW Standard Deviation 42.5 fL (36.4-46.3); Red Blood Count 4.04 M/uL (4.20-5.40); White Blood Count 15.06 K/ul (4.8-10.8)
[2022-05-01] MEDS: LORazepam 0.5 MG TAB PO PRN ×2 (09:20→20:00)
[2022-05-01] MEDS: MoRPHine SULFATE 2 MG/ML CARP IV PRN ×2 (09:21→20:00)
[2022-05-01 09:31] LABS: Albumin Globulin Ratio 1.4 (0.9-2); Albumin Level 3.7 gm/dl (3.4-5.0); BUN Creatinine Ratio 8.6 (10-20); Bilirubin,Total 0.4 mg/dl (0.2-1.0); Calcium 8.9 mg/dl (8.5-10.1); Creatinine Clr Calc Pharmacy 76.9 ml/min; Est GFR (African American) 98.2 ml/min; Est GFR (Non-African American) 84.8 ml/min; Globulin 2.7 gm/dl (2.5-4.0); Magnesium 1.7 mg/dl (1.7-2.4); Potassium 3.5 mmol/L (3.5-5.1); Total Protein 6.4 gm/dl (6.0-8.3)
--- NOTE | 2022-05-01 09:45 | Surgery Progress Note ---
Date of Service May 01, 2022 Assessment & Plan (1) Colitis: Plan: Continue treatment for colitis Had some blood on the tissue with a bowel movement-no plan for further surgical intervention with respect to this Does not seem to be having colonic bleeding We will keep her on clear liquids today and then advance diet Admission and Anticipated Discharge Date Admission Date: April 29, 2022 Subjective Patient sitting up on edge of bed and having a clear liquid breakfast Seems to be tolerating it well Had some blood on the tissue but no blood with her bowel movement which was formed Physical Exam Physical Exam: Patient is awake and alert She is in no distress Her abdomen is relatively soft but she does have some discomfort to deep palpation especially in the left side I did check her perianal area and I do not see a significant hemorrhoid or fissure although I suspect this could be a hemorrhoid causing mild bleeding Constitutional: well nourished; no acute distress Eyes: + anicteric sclerae Respiratory: normal respiratory effort; no respiratory distress Cardiovascular: Rate/Rhythm: regular rate Gastrointestinal (Abdomen): Inspection/Auscultation: abdomen not distended Musculoskeletal: Head/Neck/Chest: head atraumatic Skin: no rashes, warm and dry Neurologic: awake Psychiatric: Orientation: alert Results & Data ([facility]) Vital Signs (Past 12 Hours) Vital Signs Temp Pulse Pulse Resp BP Pulse Ox O2 Del Method 05/01/22 09:28 Room Air 05/01/22 07:39 36.7 C 80 18 138/69 93 Room Air 05/01/22 07:35 79 05/01/22 03:31 37.2 C 88 18 124/66 93 Room Air 04/30/22 23:37 36.9 C 79 18 104/57 L 94 Room Air 04/30/22 23:03 72 PG Care Time/CCT Total # of Minutes Spent Total Time Spent with Patient: Total time spent is greater than 50% in coordination of care (as documented) at patient's floor/unit and/or counseling patient: Coding Level of Care Code 62201 SUB INP/OBS CARE 03/14MIN Diagnoses Colitis K52.9
[2022-05-01 09:52] LABS: INR 1.1 (0.9-1.1); Partial Thromboplastin Ratio 2.1; Prothrombin Time 11.4 Seconds (9.0-12.0)
[2022-05-01 09:54] LABS: Partial Thromboplastin Time 57.8 Seconds (21.0-31.0)
[2022-05-01] MEDS: PANTOprazole 40 MG in SYRINGE 0 ML IV SCH (10:17)
[2022-05-01] MEDS: ONDANSETRON INJ 2 MG/ML 2 ML VIAL IV PRN ×2 (10:17→20:01)
--- NOTE | 2022-05-01 10:23 | Hospitalist Progress Note ---
Date of Service May 01, 2022 Assessment & Plan (1) Bloody diarrhea: Plan: - Admitted to med/tele - The patient is currently afebrile, hemodynamically stable, and stable on RA - CT of the abd/pelvis with IV contrast notes a a non-specific colitis in the left colon with "nonocclusive thrombus within the right and left intrahepatic portal veins. There is also thrombus within the inferior mesenteric vein.". - At this time the likely diagnosis is ischemic colitis - General surgery consulted and recommended to continue IV antibx, check C Diff (negative toxin), and limit po intake x 24-48 hrs - Was started on clear liquids yesterday. Now with increased abdominal pain - ECG shows NSR, no previous hx of arrhythmias - Continue Cefepime and Flagyl in ER - Continue IV Heparin while inpatient - May eventually need anticoagulation x3-6 months - Stool studies all negative - Follow blood cultures and tailor abx to their results - Per Surgery continue clear liquid diet today - Pain control with 2 mg IV morphine q3h prn severe pain Tylenol 650mg po q 4 hours as needed for pain or fever - IV heparin for DVT PPX - Repeat AM CBC, CMP, Mag, PT/INR, aPTT (2) Inferior mesenteric vein thrombosis: Plan: - Also noted to have nonocclusive thrombus within the right and left intrahepatic portal veins. - Continue IV Heparin (therapeutic with PTT 60.4) - See above (3) Hypercholesteremia: Plan: - Continue statin (4) Hypothyroidism: Plan: - Continue levothyroxine (5) Anxiety: Plan: - Continue Sertraline and prn ativan for now - Increased Ativan to q 12 hours as needed (how it is rx as outpatient) - Patient tearful due to her worsening pain today and wanting to go home to care for her who has dementia. Discussed the seriousness of her diagnosis and the need to stay. (6) Insomnia: Plan: - Will try prn melatonin - If needed can order her home Zolpidem (7) Low back pain: Plan: - Ordered Tylenol 650mg one q 4 hours as needed - Discussed with nursing patient asking for ice to low back ( she uses this at home) Plan The patient was discussed with Dr. Krishna Admission and Anticipated Discharge Date Admission Date: April 29, 2022 Subjective Patient is awake laying in bed. She is tearful and states she feels worse today compared to yesterday. She denies any nausea or vomiting. She had 2 small brown formed BMs today with BRB with wiping and some clots in the toilet bowl. She states she now also has left low back pain and discomfort. She tells me that she has chronic back pain and takes tylenol and uses ice for this at home. She denies any urine sxs or ever having renallithiasis in the past. She does admit to having shingles in the past. She denies any rashes or exanthems. Review of Systems Review of Systems: Denies current headache, changes in vision, hearing, taste, and smell, chest pain, SOB, cough, vomiting, hematemesis, melena, dysuria, hematuria, and recent falls. All systems have been reviewed and are otherwise negative. Patient states she had a formed brown BM today with small amount of BRB on toilet tissue Musculoskeletal: + back pain; no neck pain, no joint pain and no muscle weakness Integumentary: no rash, no lesions and no new lesions Physical Exam Constitutional: WD/WN, vitals as above ENMT: external ear and nose normal, oropharynx normal Neck: trachea midline, no thyromegaly Respiratory: normal respiratory effort, lungs clear to auscultation Cardiovascular: RRR, no murmur, no edema Gastrointestinal (Abdomen): Inspection/Auscultation: abdomen normal to inspection Percussion/Palpation: + abdomen tender and abdomen soft; no guarding, abdomen not rigid and no hepatomegaly Musculoskeletal: Pain to palpation left low back area, NSLR, DTR +2 symmetric lower legs, +5/5 strength, intact sensation Skin: No rashes or exanthems on back or abdomen Psychiatric: A+Ox3, euthymic affect Results & Data Results & Data ([facility]) Vital Signs (Past 12 Hours) Vital Signs Temp Pulse Pulse Resp BP Pulse Ox O2 Del Method 05/01/22 09:28 Room Air 05/01/22 07:39 36.7 C 80 18 138/69 93 Room Air 05/01/22 07:35 79 05/01/22 03:31 37.2 C 88 18 124/66 93 Room Air 04/30/22 23:37 36.9 C 79 18 104/57 L 94 Room Air 04/30/22 23:03 72 Laboratory Results Abnormal lab results 05/01/22 05/01/22 05/01/22 Range/Units 07:55 07:55 07:55 WBC 15.06 H (4.8-10.8) K/ul RBC 4.04 L (4.20-5.40) M/uL Hct 36.9 L (37.0-47.0) % Neut # (Auto) 12.39 H (1.40-6.50) K/uL [place] # (Auto) 1.09 H (0.11-0.59) K/uL APTT 57.8 H* (21.0-31.0) Seconds BUN/Creatinine Ratio 8.6 L (10-20) Glucose 106 H (70-99(Fasting)) mg/dl PG Care Time/CCT Total # of Minutes Spent Total Time Spent with Patient: Total time spent is greater than 50% in coordination of care (as documented) at patient's floor/unit and/or counseling patient: Coding Level of Care Code 64384 SUB INP/OBS CARE 3/50MIN Diagnoses Bloody diarrhea R19.7 Inferior mesenteric vein thrombosis K55.069 Hypercholesteremia E78.00 Hypothyroidism E03.9 Anxiety F41.9 Insomnia G47.00 Low back pain M54.50
[2022-05-02] MEDS: CEFEPIME 2,000 MG in SYRINGE 0 ML IV SCH ×3 (01:55→17:19)
[2022-05-02] MEDS: metroNIDAZOLE 500 MG/100 ML BAG IV SCH ×3 (01:55→18:15)
[2022-05-02] MEDS: MoRPHine SULFATE 2 MG/ML CARP IV PRN ×2 (03:48→21:20)
[2022-05-02] MEDS: HEPARIN SODIUM/DEXTROSE 25,000 UNITS/500 ML BAG IV SCH (05:22)
[2022-05-02 06:36] LABS: Basophils # (auto) 0.06 K/uL (0-0.2); Basophils % (auto) 0.5 %; Eosinophils # (auto) 0.18 K/uL (0-0.50); Eosinophils % (auto) 1.5 %; Hematocrit (blood only) 32.3 % (37.0-47.0); Hemoglobin 10.9 g/dl (12.0-16.0); Immature Granulocytes # (auto) 0.14 K/uL (0.01-0.20); Immature Granulocytes % (auto) 1.1 %; Lymphocytes # (auto) 1.11 K/uL (1.2-3.4); Lymphocytes % (auto) 9.1 %; Mean Corpuscular Hemoglobin 31.1 pg (25.0-34.0); Mean Corpuscular Hgb Conc 33.7 g/dL (32.0-36.0); Mean Platelet Volume 10.9 fL (9.4-12.4); Monocytes # (auto) 1.09 K/uL (0.11-0.59); Monocytes % (auto) 8.9 %; Neutrophils # (auto) 9.67 K/uL (1.40-6.50); Neutrophils % (auto) 78.9 %; Platelet Count 177 K/uL (130-400); RDW Coefficient of Variation 12.7 % (11.5-14.5); RDW Standard Deviation 42.2 fL (36.4-46.3); Red Blood Count 3.51 M/uL (4.20-5.40); White Blood Count 12.25 K/ul (4.8-10.8)
[2022-05-02 07:03] LABS: Albumin Globulin Ratio 1.4 (0.9-2); Albumin Level 3.5 gm/dl (3.4-5.0); BUN Creatinine Ratio 7.1 (10-20); Bilirubin,Total 0.4 mg/dl (0.2-1.0); Calcium 8.7 mg/dl (8.5-10.1); Creatinine Clr Calc Pharmacy 77.3 ml/min; Est GFR (African American) 98.2 ml/min; Est GFR (Non-African American) 84.8 ml/min; Globulin 2.5 gm/dl (2.5-4.0); Magnesium 1.8 mg/dl (1.7-2.4); Potassium 3.4 mmol/L (3.5-5.1)
--- NOTE | 2022-05-02 07:10 | Surgery Progress Note ---
Date of Service May 02, 2022 Assessment & Plan (1) Colitis: Plan: We will advance diet to full liquids GI consult for their thoughts regarding her colitis-I placed Does not appear to require urgent surgical intervention at this time Admission and Anticipated Discharge Date Admission Date: April 29, 2022 Subjective Patient sitting on the edge of the bed eating her clear liquid diet and wants more to eat Vital signs are stable She is passing more flatus Apparently she is on C. difficile precautions for a positive C. difficile gene but negative toxin Physical Exam Physical Exam: Abdomen is soft Less tenderness Results & Data ([facility]) Vital Signs (Past 12 Hours) Vital Signs Temp Pulse Resp BP BP Pulse Ox O2 Del Method 05/01/22 20:00 37.2 C 84 18 151/74 H 90 Room Air 05/02/22 04:21 37.0 C 74 20 143/68 H 94 Room Air 05/02/22 00:00 37.1 C 81 20 130/69 92 Room Air 05/01/22 19:52 Room Air PG Care Time/CCT Total # of Minutes Spent Total Time Spent with Patient: Total time spent is greater than 50% in coordination of care (as documented) at patient's floor/unit and/or counseling patient: Coding Level of Care Code 73230 SUB INP/OBS CARE 03/14MIN Diagnoses Colitis K52.9
[2022-05-02 07:28] LABS: INR 1.1 (0.9-1.1); Partial Thromboplastin Ratio 2.7; Prothrombin Time 11.9 Seconds (9.0-12.0)
[2022-05-02 07:33] LABS: Partial Thromboplastin Time 73.3 Seconds (21.0-31.0)
--- NOTE | 2022-05-02 07:40 | Hospitalist Progress Note ---
Date of Service May 02, 2022 Assessment & Plan (1) Bloody diarrhea: Plan: - Admitted to med/tele - The patient is currently afebrile, hemodynamically stable, and stable on RA - CT of the abd/pelvis with IV contrast notes a a non-specific colitis in the left colon with "nonocclusive thrombus within the right and left intrahepatic portal veins. There is also thrombus within the inferior mesenteric vein.". - At this time the likely diagnosis is ischemic colitis - General surgery consulted and recommended to continue IV antibx, check C Diff (negative toxin), and limit po intake x 24-48 hrs - Was started on clear liquids yesterday and advanced to full liquids today - Surgery recommended GI consult and this was placed this morning (patient known to Dr Jackson Montgomery 06/2019) GI agreed with advancing diet as tolerated to a soft low residue diet, complete a total of 10 days of antibiotics, and if the abdominal pain increases check serum lactate and also a repeat CTAP - ECG shows NSR, no previous hx of arrhythmias - Continue Cefepime and Flagyl in ER for a total of 10 days (on day #3) - Continue IV Heparin while inpatient - May eventually need anticoagulation x3-6 months - Stool studies all negative - Follow blood cultures and tailor abx to their results - Per Surgery continue clear liquid diet today - Pain control with 2 mg IV morphine q3h prn severe pain Tylenol 650mg po q 4 hours as needed for pain or fever - IV heparin for DVT PPX - Repeat AM CBC, CMP, Mag, PT/INR, aPTT (2) Inferior mesenteric vein thrombosis: Plan: - Also noted to have nonocclusive thrombus within the right and left intrahepatic portal veins. - Continue IV Heparin (therapeutic with PTT 60.4) - See above (3) Hypercholesteremia: Plan: - Continue statin (4) Hypothyroidism: Plan: - Continue levothyroxine (5) Anxiety: Plan: - Continue Sertraline and prn ativan for now - Increased Ativan to q 12 hours as needed (how it is rx as outpatient) (6) Insomnia: Plan: - Will try prn melatonin - If needed can order her home Zolpidem (7) Low back pain: Plan: - Ordered Tylenol 650mg one q 4 hours as needed - Discussed with nursing patient asking for ice to low back ( she uses this at home) - Encourage up and OOB - PT/OT Plan The patient was discussed with Dr. Krishna Admission and Anticipated Discharge Date Admission Date: April 29, 2022 Subjective Patient is sitting up in bed and states she is still having low back pain and the ice and Tylenol seem to help. She is tolerating the clear liquids and surgery has increased her diet to full liquids. Patient had a + C Diff Gene and the Toxin is negative, she does not have C Diff but is on precautions for C Diff. She tells me her stool is liquid with some formed pieces of stool and the bleeding is much less today. She states it looks more orange/brown and is no longer BRB and no longer any clots. Surgery recommended a GI consult and this was placed today. GI recommended a total of 10 days of antibiotics, agreed with advancing diet as tolerated to a soft low residue diet. Stated also that if patient should have increase in her pain to check a serum lactate level and repeat CTAP. Review of Systems Review of Systems: Denies current headache, changes in vision, hearing, taste, and smell, chest pain, SOB, cough, vomiting, hematemesis, melena, dysuria, hematuria, and recent falls. All systems have been reviewed and are otherwise negative. Musculoskeletal: + back pain; no neck pain, no joint pain and no muscle weakness Integumentary: no rash, no lesions and no new lesions Physical Exam Constitutional: WD/WN, vitals as above ENMT: external ear and nose normal, oropharynx normal Neck: trachea midline, no thyromegaly Respiratory: normal respiratory effort, lungs clear to auscultation Cardiovascular: RRR, no murmur, no edema Gastrointestinal (Abdomen): Inspection/Auscultation: abdomen normal to inspection Percussion/Palpation: + abdomen tender (tender to deep palpation left lower abdomen) and abdomen soft; no guarding, abdomen not rigid and no hepatomegaly Skin: no rashes, warm and dry Psychiatric: A+Ox3, euthymic affect Results & Data Results & Data ([facility]) Vital Signs (Past 12 Hours) Vital Signs Temp Pulse Pulse Resp BP BP Pulse Ox 05/02/22 07:28 74 05/01/22 20:00 37.2 C 84 18 151/74 H 90 05/02/22 04:21 37.0 C 74 20 143/68 H 94 05/02/22 00:00 37.1 C 81 20 130/69 92 05/01/22 19:52 O2 Del Method 05/02/22 07:28 05/01/22 20:00 Room Air 05/02/22 04:21 Room Air 05/02/22 00:00 Room Air 05/01/22 19:52 Room Air Laboratory Results Abnormal lab results 05/01/22 05/01/22 05/01/22 Range/Units 07:55 07:55 07:55 WBC 15.06 H (4.8-10.8) K/ul RBC 4.04 L (4.20-5.40) M/uL Hgb (12.0-16.0) g/dl Hct 36.9 L (37.0-47.0) % Neut # (Auto) 12.39 H (1.40-6.50) K/uL Lymph # (Auto) (1.2-3.4) K/uL Hart # (Auto) 1.09 H (0.11-0.59) K/uL APTT 57.8 H* (21.0-31.0) Seconds Potassium (3.5-5.1) mmol/L BUN (6-23) mg/dl BUN/Creatinine Ratio 8.6 L (10-20) Glucose 106 H (70-99(Fasting)) mg/dl 05/02/22 05/02/22 05/02/22 Range/Units 05:31 05:31 05:31 WBC 12.25 H (4.8-10.8) K/ul RBC 3.51 L (4.20-5.40) M/uL Hgb 10.9 L (12.0-16.0) g/dl Hct 32.3 L (37.0-47.0) % Neut # (Auto) 9.67 H (1.40-6.50) K/uL Lymph # (Auto) 1.11 L (1.2-3.4) K/uL Hart # (Auto) 1.09 H (0.11-0.59) K/uL APTT 73.3 H* (21.0-31.0) Seconds Potassium 3.4 L (3.5-5.1) mmol/L BUN 5 L (6-23) mg/dl BUN/Creatinine Ratio 7.1 L (10-20) Glucose 112 H (70-99(Fasting)) mg/dl PG Care Time/CCT Total # of Minutes Spent Total Time Spent with Patient: Total time spent is greater than 50% in coordination of care (as documented) at patient's floor/unit and/or counseling patient: Coding Level of Care Code 05190 SUB INP/OBS CARE 2/35MIN Diagnoses Bloody diarrhea R19.7 Inferior mesenteric vein thrombosis K55.069 Hypercholesteremia E78.00 Hypothyroidism E03.9 Anxiety F41.9 Insomnia G47.00 Low back pain M54.50
[2022-05-02] MEDS: SERTRALINE HCL 50 MG TABLET PO SCH (08:50)
[2022-05-02] MEDS: LEVOTHYROXINE SODIUM 100 MCG TABLET PO SCH (08:50)
--- NOTE | 2022-05-02 09:53 | Gastrointestinal Consultation ---
Date of Consultation May 02, 2022 Assessment & Plan (1) Colitis: (2) Inferior mesenteric vein thrombosis: (3) Bloody diarrhea: Plan Suspect likely ischemic colitis given the associated thrombi. She is making very slow improvement. Bleeding has resolved, pain is lessened today. 1. Okay to continue diet advancement as tolerated to a soft, low residue diet. 2. Continue abx for a total of 10 days. 3. Continue heparin ggt per primary team. 4. If pain worsens again, would recommend repeat CT imaging for further evaluation as well as serum lactate level. 5. Continue supportive care per primary team. Thank you for allowing us to participate in the care of this patient. If you have any questions or concerns, please do not hesitate to contact us. History of Present Illness Reason for Consultation: Colitis Requesting Physician: Dr. Spivey/Hetal Hung PA-C Attending Physician: Alejandro Krishna History of Present Illness Patient is a very pleasant 77 y.o. female with a history of abnormal CT scan which demonstrated nonspecific sigmoid colon thickening in 2019. At that time, she did undergo a diagnostic colonoscopy by Dr. Paz and the sigmoid and remainder of the colon was normal under direct visualization. She did have evidence of diverticulosis, internal hemorrhoids and did have a TA removed. She presented to the [facility] on 04/29/22 with reports of severe abdominal pain and bloody diarrhea. On admission, she was noted to have leukocytosis but stool Biofire was negative other than a C Diff gene positivity. She is on contact precautions in this regard. Toxin A/B was negative. CT imaging obtained demonstrated a nonspecific colitis of the left colon involving the distal transverse to sigmoid colon with associated inflammatory change. There were also findings of right and left intrahepatic and inferior mesenteric vein thrombi. She was placed on a Heparin ggt and IV abx with bowel rest and surgical consultation was obtained. Was evaluated by Dr. Spivey with no emergent surgical need identified. She has been on a clear liquid diet. GI is being consulted in regard to ongoing abdominal pain symptoms. Today, the patient reports she is having slightly less abdominal pain than yesterday. Rectal bleeding has resolved. She passed a very small caliber formed stool this morning. On a clear liquid diet. Requests advancement. Continues IV abx and Heparin ggt. No fevers or chills. Allergies Allergy/AdvReac Type Severity Reaction Status Date / Time Penicillins Allergy Mild Skin Verified 04/29/22 13:03 redness ciprofloxacin AdvReac Mild N/V Verified 04/29/22 13:03 Gmqxqlk-UWT-NkK Reductase AdvReac Mild Muscle Pain Verified 04/29/22 13:03 Inhibitor [Hwginvm-Lay-Sad Reductase Inhibitor] Sulfa (Sulfonamide AdvReac Mild N/V Verified 04/29/22 13:03 Antibiotics) clonazepam AdvReac Verified 04/29/22 13:03 Home Medications Medication Instructions Recorded Confirmed Type diphenhydramine HCl 25 mg tablet 25 mg PO HS PRN Sleep 08/10/20 04/29/22 History (Sleep Aid (diphenhydramine)) omeprazole 20 mg tablet,delayed 20 mg PO UD PRN Acid Reflux #30 11/03/20 3 Rx release tabs zolpidem 5 mg tablet (Ambien) 5 mg PO HS PRN insomnia #30 tabs 05/19/21 04/29/22 Rx acetaminophen 500 mg tablet 500 mg PO Q6H PRN Pain 09/21/21 04/29/22 History (Tylenol Extra Strength) bismuth subsalicylate 262 mg/15 mL 0 mg PO QID PRN gi-upset 09/21/21 04/29/22 History oral suspension (Pepto-Bismol) triamcinolone acetonide 0.1 % 1 applic topical BID PRN flare ups 09/21/21 04/29/22 History topical cream clotrimazole 10 mg taye 10 mg mucous membrane 5XD 7 days 09/25/21 04/29/22 Rx #35 tabs sertraline 100 mg tablet (Zoloft) 150 mg PO DAILY #135 tabs 10/10/21 04/29/22 Rx lorazepam 0.5 mg tablet 0.5 mg PO Q12H PRN stressful event 04/17/22 04/29/22 Rx or symptoms #60 tabs cholecalciferol (vitamin D3) 10 0 mcg PO DAILY 04/29/22 04/29/22 History mcg (400 unit) capsule (Vitamin D3) multivitamin 1 tab PO DAILY 04/29/22 04/29/22 History levothyroxine 100 mcg tablet 100 mcg PO QAM #90 tabs 05/02/22 Rx (Synthroid) Patient History Medical History Acid reflux Anxiety Chronic back pain Chronic obstructive pulmonary disease Colitis Non specific colitis on 06/18/19 CT scan- treated/symptoms resolved Degenerative disc disease Depression Hearing deficit Hypercholesteremia Hypothyroidism Spinal stenosis Surgical History History of back surgery 08/10/20 History of bilateral tubal ligation History of colonoscopy History of dilatation and curettage x2 History of left breast biopsy benign History of left cataract surgery History of lumbar discectomy History of right cataract surgery History of tooth extraction History of total hysterectomy with bilateral salpingo-oophorectomy (BSO) Nausea and vomiting after administration of anesthetic agent Single episode with back surgery () Family History Son Allergies Asthma Brother Liver cancer Hearing loss Cardiac disorder Family history of diabetes mellitus multiple brothers Family hx of colon cancer Sister Hearing loss Cardiac disorder Family history of diabetes mellitus multiple sisters Family hx colonic polyps Family/Other Neoplasm of gastrointestinal tract Breast cancer Hypertension Other No family history of adverse response to anesthesia Social History Smoking Status: Never smoker Second Hand Exposure: No; Do You Dip or Chew Tobacco: No; Tobacco Cessation Education Requested by Patient: No Hx Alcohol Use: No Hx Substance Use: No Preferred Language: Lao Communication Ability: Effective Visual Impairment: No Limitations Hearing Ability: Hard of Hearing Television Audio Engineer Required: No Beliefs That Will Affect Care: None marital status: Current Living Situation: Spouse Current Living Situation Comment: lives in own home with current occupational status: retired current occupation: used to work in retail Other Information That Helps Us Care for You: No Feels Safe at Home: Yes Safety Concerns: Feels Safe At This Time Childhood Exposure to Second-Hand Smoke: Yes Dental Care, Regularly: Yes Physical Activity Frequency: Does not Exercise Seatbelt Use: always Sunscreen Use: No Assistive Devices: Glasses Review of Systems Review of Systems: All systems reviewed & are unremarkable except as noted in HPI & below Physical Exam Constitutional: WD/WN, vitals as above Eyes: EOM intact bilaterally Neck: normal visual inspection Respiratory: normal respiratory effort, lungs clear to auscultation Cardiovascular: Rate/Rhythm: regular rate and regular rhythm Gastrointestinal (Abdomen): Inspection/Auscultation: + abdomen distended and + hyperactive bowel sounds Percussion/Palpation: + abdomen tender (LLQ), + guarding and abdomen soft; abdomen not rigid Musculoskeletal: Extremities: extremities normal to inspection Skin: no rashes, warm and dry Psychiatric: A+Ox3, euthymic affect Results & Data ([facility]) Vital Signs (Past 12 Hours) Vital Signs Temp Pulse Pulse Resp BP BP Pulse Ox 05/02/22 08:11 37.0 C 84 16 127/63 94 05/02/22 07:28 74 05/02/22 04:21 37.0 C 74 20 143/68 H 94 05/02/22 00:00 37.1 C 81 20 130/69 92 O2 Del Method 05/02/22 08:11 Room Air 05/02/22 07:28 05/02/22 04:21 Room Air 05/02/22 00:00 Room Air Diagnostic Findings Laboratory Results WBC 12.25 K/ul (4.8-10.8) H 05/02/22 05:31 RBC 3.51 M/uL (4.20-5.40) L 05/02/22 05:31 Hgb 10.9 g/dl (12.0-16.0) L 05/02/22 05:31 Hct 32.3 % (37.0-47.0) L 05/02/22 05:31 MCV 92.0 fL (80.0-100.0) 05/02/22 05:31 MCH 31.1 pg (25.0-34.0) 05/02/22 05:31 MCHC 33.7 g/dL (32.0-36.0) 05/02/22 05:31 RDW Std Deviation 42.2 fL (36.4-46.3) 05/02/22 05:31 RDW Coeff of Angela 12.7 % (11.5-14.5) 05/02/22 05:31 Plt Count 177 K/uL (130-400) 05/02/22 05:31 MPV 10.9 fL (9.4-12.4) 05/02/22 05:31 Immature Gran % (Auto) 1.1 % 05/02/22 05:31 Neut % (Auto) 78.9 % 05/02/22 05:31 Lymph % (Auto) 9.1 % 05/02/22 05:31 Kings % (Auto) 8.9 % 05/02/22 05:31 Eos % (Auto) 1.5 % 05/02/22 05:31 Baso % (Auto) 0.5 % 05/02/22 05:31 Neut # (Auto) 9.67 K/uL (1.40-6.50) H 05/02/22 05:31 Lymph # (Auto) 1.11 K/uL (1.2-3.4) L 05/02/22 05:31 Kings # (Auto) 1.09 K/uL (0.11-0.59) H 05/02/22 05:31 Eos # (Auto) 0.18 K/uL (0-0.50) 05/02/22 05:31 Baso # (Auto) 0.06 K/uL (0-0.2) 05/02/22 05:31 Immature Gran # (Auto) 0.14 K/uL (0.01-0.20) 05/02/22 05:31 PT 11.9 Seconds (9.0-12.0) 05/02/22 05:31 INR 1.1 (0.9-1.1) 05/02/22 05:31 APTT 73.3 Seconds (21.0-31.0) H* 05/02/22 05:31 PTT Ratio 2.7 05/02/22 05:31 Sodium 142 mmol/L (136-145) 05/02/22 05:31 Potassium 3.4 mmol/L (3.5-5.1) L 05/02/22 05:31 Chloride 105 mmol/L (98-107) 05/02/22 05:31 Carbon Dioxide 30 mmol/L (21-32) 05/02/22 05:31 Anion Gap 7 (3-11) 05/02/22 05:31 BUN 5 mg/dl (6-23) L 05/02/22 05:31 Creatinine 0.70 mg/dl (0.6-1.2) 05/02/22 05:31 Est Cr Clr Drug Dosing 77.3 ml/min 05/02/22 05:31 Est GFR ( Amer) 98.2 ml/min 05/02/22 05:31 Est GFR (Non-Af Amer) 84.8 ml/min 05/02/22 05:31 BUN/Creatinine Ratio 7.1 (10-20) L 05/02/22 05:31 Glucose 112 mg/dl (70-99(Fasting)) H 05/02/22 05:31 Lactate 1.1 mmol/L (0.4-2.0) 04/29/22 15:22 Calcium 8.7 mg/dl (8.5-10.1) 05/02/22 05:31 Magnesium 1.8 mg/dl (1.7-2.4) 05/02/22 05:31 Total Bilirubin 0.4 mg/dl (0.2-1.0) 05/02/22 05:31 AST 18 U/L (13-39) 05/02/22 05:31 ALT 11 U/L (7-52) 05/02/22 05:31 Alkaline Phosphatase 60 U/L (34-104) 05/02/22 05:31 Total Protein 6.0 gm/dl (6.0-8.3) 05/02/22 05:31 Albumin 3.5 gm/dl (3.4-5.0) 05/02/22 05:31 Globulin 2.5 gm/dl (2.5-4.0) 05/02/22 05:31 Albumin/Globulin Ratio 1.4 (0.9-2) 05/02/22 05:31 Triglycerides 115 mg/dl (0-150) 04/30/22 05:36 Cholesterol 260 mg/dl (0-200) H 04/30/22 05:36 LDL Cholesterol, Calc 174 mg/dl 04/30/22 05:36 VLDL Cholesterol, Calc 23 mg/dl (0-30) 04/30/22 05:36 HDL Cholesterol 63 mg/dl 04/30/22 05:36 Cholesterol/HDL Ratio 4.1 (0-5) 04/30/22 05:36 Lipase 29 U/L (11-82) 04/29/22 12:06 TSH 1.885 uIu/ml (0.300-4.500) 04/29/22 12:06 Urine Color Yellow 04/29/22 12:06 Urine Appearance Clear (Clear) 04/29/22 12:06 Urine pH 7.5 (4.5-7.5) 04/29/22 12:06 Ur Specific [place] 1.012 (1.000-1.030) 04/29/22 12:06 Urine Protein Negative (Negative) 04/29/22 12:06 Urine Glucose (UA) Negative (Negative) 04/29/22 12:06 Urine Ketones Negative (Negative) 04/29/22 12:06 Urine Blood Negative (Negative) 04/29/22 12:06 Urine Nitrite Negative (Negative) 04/29/22 12:06 Urine Bilirubin Negative (Negative) 04/29/22 12:06 Urine Urobilinogen Negative (Negative) 04/29/22 12:06 Ur Leukocyte Esterase Trace (Negative) H 04/29/22 12:06 Urine WBC (Auto) 1-5 /hpf (0-5) 04/29/22 12:06 Urine RBC (Auto) 0-4 /hpf (0-4) 04/29/22 12:06 U Hyaline Cast (Auto) 0 /lpf (0-5) 04/29/22 12:06 U Epithel Cells (Auto) 10-20 /lpf (0-5) H 04/29/22 12:06 Urine Bacteria (Auto) Negative (Negative) 04/29/22 12:06 Stl C. cayetanensis PCR Not Detected (NotDetected) 04/29/22 Unknown Stool Rotavirus A PCR Not Detected (NotDetected) 04/29/22 Unknown Stl Adenov F 40/41 PCR Not Detected (NotDetected) 04/29/22 Unknown Stool Astrovirus (PCR) Not Detected (NotDetected) 04/29/22 Unknown Stool Campylobacter PCR Not Detected (NotDetected) 04/29/22 Unknown Stl C. diff Tox B Gene Positive Cdiff Gene (Neg) H 04/29/22 Unknown Stl C.difficile Tox A&B Negative Cdiff Toxin (Negative) 04/29/22 Unknown Stool Cryptosporidium PCR Not Detected (NotDetected) 04/29/22 Unknown Stl E.coli Shiga Tox PCR Not Detected (NotDetected) 04/29/22 Unknown Stl Enterotoxigenic E PCR Not Detected (NotDetected) 04/29/22 Unknown Stool EPEC (PCR) Not Detected (NotDetected) 04/29/22 Unknown Stool EAEC (PCR) Not Detected (NotDetected) 04/29/22 Unknown Stl E. histolytica PCR Not Detected (NotDetected) 04/29/22 Unknown Stool Giardia Lamblia PCR Not Detected (NotDetected) 04/29/22 Unknown Stool Salmonella PCR Not Detected (NotDetected) 04/29/22 Unknown Stool Sapovirus (PCR) Not Detected (NotDetected) 04/29/22 Unknown Stl P. shigelloides PCR Not Detected (NotDetected) 04/29/22 Unknown Stl Shigella/EIEC PCR Not Detected (NotDetected) 04/29/[address].enterocolitica PCR Not Detected (NotDetected) 04/29/22 Unknown Stool Vibrio (PCR) Not Detected (NotDetected) 04/29/22 Unknown Stl Vibrio cholerae PCR Not Detected (NotDetected) 04/29/22 Unknown Stl Norovirus GI/GII PCR Not Detected (NotDetected) 04/29/22 Unknown SARS-CoV-2, RNA, NAAT NEGATIVE (NEGATIVE) 04/29/22 18:25 Impressions Abdomen/Pelvis CT 04/29/22 11:48 CT SCAN OF THE ABDOMEN AND PELVIS WITH IV CONTRAST CLINICAL HISTORY: Generalized abdominal pain. Hematochezia. COMPARISON STUDY: Abdominal CT dated 09/21/2021. TECHNIQUE: Following the IV administration of 85 cc of Optiray 350, CT scan of the abdomen and pelvis is performed from the lung bases to the proximal femora. Images are reviewed in the axial, sagittal, and coronal planes. IV contrast was administered without complication. A dose lowering technique was utilized adhering to the principles of ALARA. CT DOSE: 374.77 mGy.cm FINDINGS: Lung bases: The heart is normal in size and without pericardial effusion. The lung bases are clear. There is a [id number] hiatal hernia. Liver: The contrast-enhanced liver is normal in size, contour, and attenuation. There is no intrahepatic biliary ductal dilatation. There is nonocclusive thrombus within the intrahepatic right and left lobe portal veins. This is best seen on axial images #93 and #94. The main portal vein is patent. There is thrombus within the inferior mesenteric vein seen on image #141. Hepatic veins are clear. Gallbladder: Unremarkable. Spleen: Normal in size and attenuation. Pancreas: Unremarkable. Adrenal glands: Unremarkable. Kidneys: The contrast enhanced kidneys are normal in size and without hydronephrosis. The kidneys enhance symmetrically. A 3.5 cm cyst is seen in the right lower pole. Abdominal vasculature: The abdominal aorta is normal in course and caliber noting mild atherosclerotic calcification. Bowel: There is mild colonic diverticulosis without CT evidence of acute diverticulitis. There is a long segment of thick-walled and edematous colon. This extends from the distal transverse colon to the sigmoid with surrounding inflammation, and this is consistent with a nonspecific colitis. No bowel obstruction is seen. The appendix is well-visualized and normal. Peritoneum: There is no intraperitoneal free air or abdominal ascites. There is a small fat-containing umbilical hernia. Lymphadenopathy: None. Pelvic viscera: The bladder is decompressed and not well assessed. The uterus is surgically absent. No adnexal lesion is seen. Skeletal structures: The skeletal structures are osteopenic. No lytic or blastic lesions are seen. IMPRESSION: 1. There is nonocclusive thrombus within the right and left intrahepatic portal veins. There is also thrombus within the inferior mesenteric vein. 2. There is a nonspecific colitis of the left colon. Although this could be on an infectious or inflammatory basis, this could also be related to venous ischemia given the findings of mesenteric venous thrombus. Clinical correlation will be required. 3. Colonic diverticulosis without CT evidence of acute diverticulitis. 4. Additional findings as above. ACT 112: Negative or not required by law. Electronically signed by: Solitario Marrero M.D. 04/29/2022 2:24 PM PG Care Time/CCT Total # of Minutes Spent Total Time Spent with Patient: Total time spent is greater than 50% in coordination of care (as documented) at patient's floor/unit and/or counseling patient: Coding Level of Care Code 23353 INT INP/OBS CARE 3/75MIN Diagnoses Colitis K52.9 Inferior mesenteric vein thrombosis K55.069 Bloody diarrhea R19.7
[2022-05-02] MEDS: ONDANSETRON INJ 2 MG/ML 2 ML VIAL IV PRN ×2 (10:04→17:19)
[2022-05-02] MEDS: ACETAMINOPHEN 325 MG TAB PO PRN ×3 (10:04→21:20)
[2022-05-02] MEDS: PANTOprazole 40 MG in SYRINGE 0 ML IV SCH (11:30)
[2022-05-02 17:33] LABS: Partial Thromboplastin Time 55.6 Seconds (21.0-31.0)
[2022-05-02] MEDS: LORazepam 0.5 MG TAB PO PRN (20:50)
[2022-05-03] MEDS: CEFEPIME 2,000 MG in SYRINGE 0 ML IV SCH ×3 (00:30→17:41)
[2022-05-03] MEDS: metroNIDAZOLE 500 MG/100 ML BAG IV SCH ×3 (00:30→17:51)
[2022-05-03] MEDS: HEPARIN SODIUM/DEXTROSE 25,000 UNITS/500 ML BAG IV SCH (03:25)
[2022-05-03] MEDS: ONDANSETRON INJ 2 MG/ML 2 ML VIAL IV PRN ×3 (04:00→17:41)
[2022-05-03 06:19] LABS: Hematocrit (blood only) 32.5 % (37.0-47.0); Mean Corpuscular Hgb Conc 33.8 g/dL (32.0-36.0); Mean Corpuscular Volume 91.5 fL (80.0-100.0); Mean Platelet Volume 10.9 fL (9.4-12.4); Platelet Count 178 K/uL (130-400); RDW Coefficient of Variation 12.6 % (11.5-14.5); RDW Standard Deviation 42.1 fL (36.4-46.3); Red Blood Count 3.55 M/uL (4.20-5.40); White Blood Count 9.99 K/ul (4.8-10.8)
[2022-05-03 06:26] LABS: BUN Creatinine Ratio 7.5 (10-20); Calcium 8.7 mg/dl (8.5-10.1); Creatinine Clr Calc Pharmacy 80.5 ml/min; Est GFR (African American) 99.7 ml/min; Potassium 3.4 mmol/L (3.5-5.1)
[2022-05-03 06:56] LABS: Partial Thromboplastin Ratio 1.9
[2022-05-03 07:12] LABS: Partial Thromboplastin Time 52.8 Seconds (21.0-31.0)
--- NOTE | 2022-05-03 07:14 | Surgery Progress Note ---
Date of Service May 03, 2022 Assessment & Plan (1) Colitis: Plan: Advance to low fiber diet Continue IV antibiotics Possible discharge in 24 to 48 hours depending on progress I will be going away and my partners will be covering me Admission and Anticipated Discharge Date Admission Date: April 29, 2022 Subjective Patient awake and alert Passing some flatus Less abdominal pain Does have some epigastric discomfort and cramping Physical Exam Physical Exam: Patient in no distress Abdomen is soft and minimal tenderness in the left side Much less than admission Results & Data Vital Signs (Past 12 Hours) Vital Signs Temp Pulse Pulse Resp BP Pulse Ox O2 Del Method 05/03/22 04:28 36.6 C 82 20 128/58 L 93 Room Air 05/02/22 22:04 73 05/02/22 23:50 36.6 C 79 20 135/63 92 Room Air 05/02/22 19:52 36.6 C 82 20 127/65 93 Room Air PG Care Time/CCT Total # of Minutes Spent Total Time Spent with Patient: Total time spent is greater than 50% in coordination of care (as documented) at patient's floor/unit and/or counseling patient: Coding Level of Care Code 66437 SUB INP/OBS CARE 03/14MIN Diagnoses Colitis K52.9
--- NOTE | 2022-05-03 07:44 | Hospitalist Progress Note ---
Date of Service May 03, 2022 Assessment & Plan (1) Bloody diarrhea: Plan: - Admitted to med/tele - The patient is currently afebrile, hemodynamically stable, and stable on RA 96% - CT of the abd/pelvis with IV contrast notes a a non-specific colitis in the left colon with "nonocclusive thrombus within the right and left intrahepatic portal veins. There is also thrombus within the inferior mesenteric vein.". - At this time the likely diagnosis is ischemic colitis - General surgery consulted and recommended to continue IV antibx, check C Diff (negative toxin), and limit po intake x 24-48 hrs - Was advanced to full liquid diet yesterday and today surgery advanced to low fiber - GI consult was placed (patient known to Dr Jackson Montgomery 06/2019) GI agreed with advancing diet as tolerated to a soft low residue diet, complete a total of 10 days of antibiotics, and if the abdominal pain increases check serum lactate and also a repeat CTAP - ECG shows NSR, no previous hx of arrhythmias - Continue Cefepime and Flagyl in ER for a total of 10 days (on day #4) - Continue IV Heparin while inpatient - May eventually need anticoagulation x3-6 months - Stool studies all negative - Follow blood cultures and tailor abx to their results - Pain control with 2 mg IV morphine q3h prn severe pain Tylenol 650mg po q 4 hours as needed for pain or fever - Zofran as needed for nausea - IV heparin for DVT PPX - Repeat AM CBC, CMP, Mag, PT/INR, aPTT (2) Inferior mesenteric vein thrombosis: Plan: - Also noted to have nonocclusive thrombus within the right and left intrahepatic portal veins. - Continue IV Heparin - See above (3) Hypercholesteremia: Plan: - Continue statin (4) Hypothyroidism: Plan: - Continue levothyroxine (5) Anxiety: Plan: - Continue Sertraline and prn ativan for now - Increased Ativan to q 12 hours as needed (how it is rx as outpatient) (6) Insomnia: Plan: - Will try prn melatonin - If needed can order her home Zolpidem (7) Low back pain: Plan: - Ordered Tylenol 650mg one q 4 hours as needed - Discussed with nursing patient asking for ice to low back ( she uses this at home) - Encourage up and OOB - PT/OT Plan The patient was discussed with Dr. Wolfe Admission and Anticipated Discharge Date Admission Date: April 29, 2022 Subjective Patient is awake sitting up in recliner eating breakfast. Surgery advanced diet to low fiber and stated possible discharge in 24 to 48 hours. We are on day #4 of the antibiotics. She has no further rectal bleeding and pain is improving Review of Systems Review of Systems: Denies current headache, changes in vision, hearing, taste, and smell, chest pain, SOB, cough, vomiting, hematemesis, melena, dysuria, hematuria, and recent falls. All systems have been reviewed and are otherwise negative. Gastrointestinal: + nausea; no vomiting Musculoskeletal: + back pain; no neck pain, no joint pain and no muscle weakness Integumentary: no rash, no lesions and no new lesions Physical Exam Constitutional: WD/WN, vitals as above ENMT: external ear and nose normal, oropharynx normal Neck: trachea midline, no thyromegaly Respiratory: normal respiratory effort, lungs clear to auscultation Cardiovascular: RRR, no murmur, no edema Gastrointestinal (Abdomen): Inspection/Auscultation: abdomen normal to inspection Percussion/Palpation: abdomen soft; no guarding, abdomen not rigid and no hepatomegaly Skin: no rashes, warm and dry Psychiatric: A+Ox3, euthymic affect Results & Data Results & Data Vital Signs (Past 12 Hours) Vital Signs Temp Pulse Pulse Resp BP BP Pulse Ox 05/03/22 07:34 68 05/03/22 07:23 36.6 C 77 15 144/72 H 96 05/03/22 04:28 36.6 C 82 20 128/58 L 93 05/02/22 22:04 73 05/02/22 23:50 36.6 C 79 20 135/63 92 05/02/22 19:52 36.6 C 82 20 127/65 93 O2 Del Method 05/03/22 07:34 05/03/22 07:23 Room Air 05/03/22 04:28 Room Air 05/02/22 22:04 05/02/22 23:50 Room Air 05/02/22 19:52 Room Air Laboratory Results Abnormal lab results 05/02/22 05/03/22 05/03/22 Range/Units 16:20 05:44 05:44 RBC 3.55 L (4.20-5.40) M/uL Hgb 11.0 L (12.0-16.0) g/dl Hct 32.5 L (37.0-47.0) % APTT 55.6 H* 52.8 H* (21.0-31.0) Seconds Potassium (3.5-5.1) mmol/L BUN (6-23) mg/dl BUN/Creatinine Ratio (10-20) Glucose (70-99(Fasting)) mg/dl 05/03/22 Range/Units 05:44 RBC (4.20-5.40) M/uL Hgb (12.0-16.0) g/dl Hct (37.0-47.0) % APTT (21.0-31.0) Seconds Potassium 3.4 L (3.5-5.1) mmol/L BUN 5 L (6-23) mg/dl BUN/Creatinine Ratio 7.5 L (10-20) Glucose 106 H (70-99(Fasting)) mg/dl PG Care Time/CCT Total # of Minutes Spent Total Time Spent with Patient: Total time spent is greater than 50% in coordination of care (as documented) at patient's floor/unit and/or counseling patient: Coding Level of Care Code 96998 SUB INP/OBS CARE 2/35MIN Diagnoses Bloody diarrhea R19.7 Inferior mesenteric vein thrombosis K55.069 Hypercholesteremia E78.00 Hypothyroidism E03.9 Anxiety F41.9 Insomnia G47.00 Low back pain M54.50
[2022-05-03] MEDS: LORazepam 0.5 MG TAB PO PRN ×2 (07:50→20:27)
[2022-05-03] MEDS: LEVOTHYROXINE SODIUM 100 MCG TABLET PO SCH (09:09)
[2022-05-03] MEDS: SERTRALINE HCL 50 MG TABLET PO SCH (09:10)
[2022-05-03] MEDS: PANTOprazole 40 MG in SYRINGE 0 ML IV SCH (10:43)
[2022-05-03] MEDS: PROCHLORPERAZINE 5 MG in SYRINGE 4 ML IV PRN (20:00)
[2022-05-03] MEDS: ACETAMINOPHEN 325 MG TAB PO PRN (20:27)
[2022-05-04] MEDS: CEFEPIME 2,000 MG in SYRINGE 0 ML IV SCH ×2 (00:35→10:23)
[2022-05-04] MEDS: metroNIDAZOLE 500 MG/100 ML BAG IV SCH ×2 (00:35→09:53)
[2022-05-04] MEDS: HEPARIN SODIUM/DEXTROSE 25,000 UNITS/500 ML BAG IV SCH (02:04)
[2022-05-04 06:27] LABS: Basophils # (auto) 0.12 K/uL (0-0.2); Basophils % (auto) 1.3 %; Eosinophils # (auto) 0.27 K/uL (0-0.50); Hematocrit (blood only) 33.1 % (37.0-47.0); Hemoglobin 11.1 g/dl (12.0-16.0); Immature Granulocytes # (auto) 0.46 K/uL (0.01-0.20); Lymphocytes # (auto) 1.21 K/uL (1.2-3.4); Lymphocytes % (auto) 13.3 %; Mean Corpuscular Hemoglobin 30.7 pg (25.0-34.0); Mean Corpuscular Hgb Conc 33.5 g/dL (32.0-36.0); Mean Corpuscular Volume 91.7 fL (80.0-100.0); Mean Platelet Volume 10.8 fL (9.4-12.4); Monocytes # (auto) 1.04 K/uL (0.11-0.59); Monocytes % (auto) 11.4 %; Neutrophils # (auto) 6.01 K/uL (1.40-6.50); Platelet Count 184 K/uL (130-400); RDW Coefficient of Variation 12.8 % (11.5-14.5); RDW Standard Deviation 42.6 fL (36.4-46.3); Red Blood Count 3.61 M/uL (4.20-5.40); White Blood Count 9.11 K/ul (4.8-10.8)
[2022-05-04] MEDS: ONDANSETRON INJ 2 MG/ML 2 ML VIAL IV PRN ×2 (06:51→14:26)
[2022-05-04 07:05] LABS: Partial Thromboplastin Ratio 2.4
[2022-05-04] MEDS: LEVOTHYROXINE SODIUM 100 MCG TABLET PO SCH (09:53)
[2022-05-04] MEDS: PANTOprazole 40 MG in SYRINGE 0 ML IV SCH (09:53)
[2022-05-04] MEDS: SERTRALINE HCL 50 MG TABLET PO SCH (09:53)
[2022-05-04] MEDS: PROCHLORPERAZINE 5 MG in SYRINGE 4 ML IV PRN (10:23)
[2022-05-04] MEDS ORDERED: APIXABAN 5 MG TABLET PO SCH (11:15)
[2022-05-04] MEDS ORDERED: metroNIDAZOLE 500 MG TAB PO SCH (14:00)
--- NOTE | 2022-05-04 14:23 | Discharge Summary ---
Date of Service May 04, 2022 Admission HPI Per Admitting Provider Lorrie is a 77 year old female with a PMH significant for hypothyroidism, hyperlipidemia, anxiety, insomnia, and chronic back pain who presented to the [facility] ED on 04/29/22 with complaints of nausea, vomiting, and bloody diarrhea. In the Ed the patient was found to be afebrile, hemodynamically stable, and stable on RA. Labs were remarkable for a leukocytosis of 19 with left shift of 17, stable Hgb at 14 with platelets of 221, lymphocyte count of 0.84, stable Cr at 0.74 with stable electrolytes, LFT's WNL, lactate of 1.1, lipase of 29 with TSH WNL, UA not suggestive of UTI. CT of the abdomen/pelvis with IV contrast was read as "1. There is nonocclusive thrombus within the right and left intrahepatic portal veins. There is also thrombus within the inferior mesenteric vein. 2. There is a nonspecific colitis of the left colon. Although this could be on an infectious or inflammatory basis, this could also be related to venous ischemia given the findings of mesenteric venous thrombus. Clinical correlation will be required. 3. Colonic diverticulosis without CT evidence of acute diverticulitis. 4. Additional findings as above.". Prior to admission the patient was given a 500 mL NSS bolus, 4 mg IV morphine, and 4 mg IV zofran. At the time of the exam the patient was lying in bed in no acute distress with her daughter sitting bedside, history was obtained from both. The patient has been recovering from a Covid 19 infection approximately one month ago. Since then she has felt more generally weak but did not require medications or hospitalization for her covid infection. Yesterday her generalized weakness increased and she had decreased appetite. She was woken up this am around 0500 with severe abdominal pain throughout. She describes the pain as sharp/cramping which is constant but will have waves of more severe pain. She noted the pain to be most severe on the left side of her abdomen. She has had approximately 4-5 episodes of diarrhea since 0500. With her first episode of diarrhea she did not noticed blood. With subsequent bowel movements she first noticed blood on the toilet paper then in her stool. She denies fevers but has had chills. She denies chest pain SOB, vomiting, dysuria, hematuria, melena, BL LE swelling and recent trauma. She has been nauseous but has not yet vomited. Her abdominal pain is currently controlled after receiving her second dose of morphine. We discussed code status, she wishes to be a full code and for her Son and Daughter to make decisions for her if she cannot make them herself. Please refer to Dr. Aguilar's attestation for any changes to the treatment plan Admission Exam Per Admitting Provider Physical Exam: General:In no acute distress, stated age, currently ill-appearing HEENT:Normocephalic, atraumatic, no scleral icterus, pupils around round, symmetrical, and reactive to light, dry mucus membranes, trachea midline, no thyromegaly Chest/Pulm:No respiratory distress, symmetrical chest expansion, clear breath sounds throughout Cardiac:RRR, no murmurs noted Abdomen:Negative for ascites and bruising, normoactive bowel sounds, soft, tender to palpation in the BL lower abdominal vincent and left upper abdominal field with mild rebound tenderness Musculoskeletal:Symmetrical and without signs of acute trauma, upper and lower extremities with full ROM, no atrophy, spasticity, or flaccidity Extremities:Radial, dorsalis pedis, and posterior tibial pulses are intact and symmetrical, no edema noted in the BL LE's Skin:Warm, dry, no rashes , lesions, or scars noted Neuro:Alert and oriented to person, place, month, year, and president, no focal defects, CN II-XII tested and intact, no tremors noted Psych:No acute distress, calm and cooperative during the exam Principal Diagnosis Ischemic Colitis Inferior mesenteric vein thrombosis Discharge Exam Constitutional WD/WN, vitals as above ENMT external ear and nose normal, oropharynx normal Neck trachea midline, no thyromegaly Respiratory normal respiratory effort, lungs clear to auscultation Cardiovascular RRR, no murmur, no edema Gastrointestinal (Abdomen) Inspection/Auscultation: abdomen normal to inspection Percussion/Palpation: + abdomen tender (tender to deep palpation left lower abdomen) and abdomen soft; no guarding, abdomen not rigid and no hepatomegaly Skin no rashes, warm and dry Psychiatric A+Ox3, euthymic affect Discharge Data Allergies Allergy/AdvReac Type Severity Reaction Status Date / Time Penicillins Allergy Mild Skin Verified 04/29/22 13:03 redness ciprofloxacin AdvReac Mild N/V Verified 04/29/22 13:03 Eiyaxct-ABA-QcD Reductase AdvReac Mild Muscle Pain Verified 04/29/22 13:03 Inhibitor [Fnmmbqs-Zpk-Cof Reductase Inhibitor] Sulfa (Sulfonamide AdvReac Mild N/V Verified 04/29/22 13:03 Antibiotics) clonazepam AdvReac Verified 04/29/22 13:03 Consultations 04/29/22 15:19 ED Decision to Admit Stat 04/29/22 16:44 Consult General Surgery Routine 05/02/22 07:31 Consult Gastroenterology Routine 05/02/22 08:10 Consult Gastroenterology Routine Ordered Studies 04/29/22 11:48 CT abd pelvis IV con only Stat 1. There is nonocclusive thrombus within the right and left intrahepatic portal veins. There is also thrombus within the inferior mesenteric vein. 2. There is a nonspecific colitis of the left colon. Although this could be on an infectious or inflammatory basis, this could also be related to venous ischemia given the findings of mesenteric venous thrombus. Clinical correlation will be required. 3. Colonic diverticulosis without CT evidence of acute diverticulitis. Hospital Course (1) Bloody diarrhea: - Admitted to med/tele - The patient is currently afebrile, hemodynamically stable, and stable on RA 95% - CT of the abd/pelvis with IV contrast notes a a non-specific colitis in the left colon with "nonocclusive thrombus within the right and left intrahepatic portal veins. There is also thrombus within the inferior mesenteric vein.". - At this time the likely diagnosis is ischemic colitis - General surgery consulted and recommended to continue IV antibx, check C Diff (negative toxin), and limit po intake x 24-48 hrs - Was advanced to low fiber diet yesterday and has been tolerating - GI consult was placed (patient known to Dr Jackson Montgomery 06/2019) GI agreed with advancing diet as tolerated to a soft low residue diet, complete a total of 10 days of antibiotics, and if the abdominal pain increases check serum lactate and also a repeat CTAP - ECG shows NSR, no previous hx of arrhythmias - Continue Cefepime and Flagyl in ER for a total of 10 days (on day #4) - Continue IV Heparin while inpatient - May eventually need anticoagulation x3-6 months - Stool studies all negative - Follow blood cultures and tailor abx to their results - Pain control with 2 mg IV morphine q3h prn severe pain Tylenol 650mg po q 4 hours as needed for pain or fever - Zofran as needed for nausea - IV heparin for DVT PPX stopped today and changed to po Eliquis (2) Inferior mesenteric vein thrombosis: - Also noted to have nonocclusive thrombus within the right and left intrahepatic portal veins. - Stopped IV heparin this AM and changed to oral Eliquis - Need to treat for 3-6 months - Follow up with PCP in 1-2 weeks - See above (3) Hypercholesteremia: - Continue statin (4) Hypothyroidism: - Continue levothyroxine (5) Anxiety: - Continue Sertraline and prn ativan for now - Increased Ativan to q 12 hours as needed (how it is rx as outpatient) (6) Insomnia: - prn melatonin (7) Low back pain: - Ordered Tylenol 650mg one q 4 hours as needed - Discussed with nursing patient asking for ice to low back ( she uses this at home) - Encourage up and OOB - PT/OT Plan The patient was discussed with Dr. Wolfe Discharge to home today Total Time Total Time Spent Total Time Spent (In Minutes): 40 Discharge Plan Discharge Items Patient Disposition: Home - Self-Care Reason For Visit: ABD PAIN Discharge Diagnosis: inferior mesenteric vein thrombosis Ischemic colitis Condition on Discharge: Good Activity: Resume your previous activity Exercise/Sports: Gradually increase as tolerated Weightbearing: Full weightbearing Non-emergency contact: Primary Care Provider Call non-emergency contact if: you have any medication questions, your symptoms worsen, your pain is not controlled and your temperature is above 101 Follow-up/Referrals: Mynor Garcia, [Primary Care Provider] - 05/14/22 1:00 pm Diet: Low Fiber Diet Comment: Please follow a low fiber diet for the next 2 weeks Addtl Attending Provider Instructions: You were admitted with abdominal pain and your CT of your abdomen revealed a thrombosis (clot) in one of your veins in the pevis and likely caused ischemic colitis. Which is inflammation in the colon causing pain and bloody diarrhea. You were treated with IV heparin for the clot and then were slowly advance with your diet from nothing to clear lquids to a low fiber diet. You will be sent home with 5 more days of antibiotics. Flagyl 500mg one pill 3 X per day and Cefdinir 300mg one pill 2 X per day. Start those medications tomorrow. You also will be sent home with Eliquis (which is a blood thinner for the clot. You will need to take the Eliquis 2 pills 2 X per day for 7 days and then change to one pill 2 x per day on 05/11/22. You will need to follow up with your PCP for further instructions regarding the total duration of the Eliquis, which is usually 3-6 months of treatment. You have been rx only one month. It is recommended to see your family doctor in 1-2 week. You also should follow up with the GI specialist and my need a follow up colonoscopy in 6-8 weeks. Pending Studies at Discharge: No Stand-Alone Forms: My [facility] [employer] Smoking Cessation Medications and DC Order Prescriptions: New Eliquis 5 mg Tablet 5 mg PO BID Qty: 73 0RF Rx Instructions: 2 tabs BID starting tonight and change to 1 tab BID on 05/11/22 metronidazole 500 mg Tablet 500 mg PO Q8 5 Days Qty: 15 0RF Rx Instructions: Start this medication tomorrow 05/05/22 ondansetron 4 mg tablet,disintegrating 4 mg PO Q8H 14 Days Qty: 42 0RF cefdinir 300 mg capsule 300 mg PO BID 5 Days Qty: 10 0RF Continued sertraline [Zoloft] 100 mg tablet 150 mg PO DAILY Qty: 135 3RF lorazepam 0.5 mg tablet 0.5 mg PO Q12H PRN (Reason: stressful event or symptoms) Qty: 60 0RF levothyroxine [Synthroid] 100 mcg tablet 100 mcg PO QAM Qty: 90 3RF omeprazole 20 mg tablet,delayed release (DR/EC) 20 mg PO UD PRN (Reason: Acid Reflux) Qty: 30 6RF zolpidem [Ambien] 5 mg tablet 5 mg PO HS PRN (Reason: insomnia) Qty: 30 0RF clotrimazole 10 mg taye 10 mg mucous membrane 5XD 7 Days Qty: 35 0RF triamcinolone acetonide 0.1 % cream 1 applic topical BID PRN (Reason: flare ups) diphenhydramine HCl [Sleep Aid (diphenhydramine)] 25 mg Tablet 25 mg PO HS PRN (Reason: Sleep) acetaminophen [Tylenol Extra Strength] 500 mg Tablet 500 mg PO Q6H PRN (Reason: Pain) bismuth subsalicylate [Pepto-Bismol] 262 mg/15 mL Suspension 0 mg PO QID PRN (Reason: gi-upset) multivitamin Tablet 1 tab PO DAILY cholecalciferol (vitamin D3) [Vitamin D3] 10 mcg (400 unit) Capsule 0 mcg PO DAILY Discharge Orders: Discharge Order (Routine); Ordered 05/04/22 Ordered By: Hetal Cox/Other Patient Handouts: Ischemic Colitis Admission Data Admit Date/Time: 04/29/22 16:40 Attending Provider: Julio C Wolfe Admit Provider: Gabriel Aguilar Primary Care Provider: Mynor Garcia Other Providers: Gabriel Aguilar ; Abelardo Spivey ; Se Monroy ; Sabra Casanova ; Evelyn Heredia ; Alondra Freed Jr ; Pam Santiago ; Quan Paz ; Jabier Juarez ; Laura Renae ; [employer] ; Jossie Gonzalez ; Cecy Paiz ; Lauren Melendez ; Heladio Kaufman ; Cruz Nath ; Alayna Bragg ; Meka Alfaro ; Damir Kirby ; Luna Doyle ; Hunter Bunch ; Promise Whelan Coding Level of Care Code 49716 INP/OBS DISCH >30 MIN Diagnoses Bloody diarrhea R19.7 Inferior mesenteric vein thrombosis K55.069 Hypercholesteremia E78.00 Hypothyroidism E03.9 Anxiety F41.9 Insomnia G47.00 Low back pain M54.50
[2022-05-05] MEDS ORDERED: LEVOTHYROXINE SODIUM 100 MCG TABLET PO SCH (06:30)
[2022-05-05] MEDS ORDERED: PANTOprazole 40 MG TAB PO SCH (11:00)
== END 2022-05-04 16:15 | disposition home or self-care (01) | DRG 393 ==
LOC: ED 11:28 → 2N 16:40 → SUATTDRO 16:40 → 2N 20:33
DX: K92.1 Melena; Z79.890 Hormone replacement therapy; K55.9 Vascular disorder of intestine, unspecified; G47.00 Insomnia, unspecified; Z88.8 Allergy status to other drugs, medicaments and biological substances; I81 Portal vein thrombosis; F41.9 Anxiety disorder, unspecified; Z88.2 Allergy status to sulfonamides; J44.9 Chronic obstructive pulmonary disease, unspecified; M54.89 Other dorsalgia; Z88.0 Allergy status to penicillin; Z86.16 Personal history of COVID-19; E03.9 Hypothyroidism, unspecified; E78.00 Pure hypercholesterolemia, unspecified